=== PATIENT | female | born 1945 | race Caucasian/White ===

== ENCOUNTER → 2016-08-22 | Outpatient (CLI) | payer MEDICARE ==
[2016-08-22 12:15] LABS: Basophils % (A) 1 %; CH 29.9; CHCM 33.1; Eosinophils # (A) 0.2 k/uL (0-0.7); Eosinophils % (A) 3 %; HCT 41.2 % (34.0-46.0); HDW 2.57; HGB 13.4 gm/dL (11.4-16.0); Luc # (Auto) 0.14; Luc % (Auto) 2; Lymphocytes # (A) 2.4 k/uL (1.0-4.8); Lymphocytes % (A) 33 %; MCH 29.6 pg (25.0-35.0); MCHC 32.7 g/dL (31.0-37.0); MCV 90.6 fL (80.0-100.0); Mean Platelet Volume 7.1; Monocytes # (A) 0.4 k/uL (0-1.0); Monocytes % (A) 5 %; Neutrophils # (A) 4.3 k/uL (1.3-7.7); Neutrophils % (A) 57 %; RBC 4.54 m/uL (3.80-5.40); RDW 12.8 % (11.5-15.5); WBC 7.5 k/uL (3.8-10.6)
[2016-08-22 12:47] LABS: ALT 32 U/L (9-52); AST 25 U/L (14-36); Alkaline Phosphatase 133 U/L (38-126); Anion Gap 13 mmol/L; Blood Urea Nitrogen 17 mg/dL (7-17); Calcium 9.6 mg/dL (8.4-10.2); Carbon Dioxide 24 mmol/L (22-30); Chloride 107 mmol/L (98-107); Glucose 111 mg/dL (74-99); Non-African American GFR(MDRD) >60 (>60 ml/min/1.73 sqM); Potassium 4.6 mmol/L (3.5-5.1); Sodium 144 mmol/L (137-145); Total Bilirubin 0.8 mg/dL (0.2-1.3); Total Protein 7.5 g/dL (6.3-8.2)
--- NOTE | 2016-08-27 11:02 | MM ---
Reason for exam: screening (asymptomatic). Last mammogram was performed 2 years and 2 months ago. History: Patient is postmenopausal. Benign stereotactic core biopsy of the right breast, September 16, 2003. Benign stereotactic core biopsy of the right breast, May 16, 2000. Excisional biopsy of the left breast. Took estrogen for 6 months. Physical Findings: A clinical breast exam by your physician is recommended on an annual basis and results should be correlated with mammographic findings. MG 3D Screening Mammo W/Cad Bilateral CC and MLO view(s) were taken. Prior study comparison: June 10, 2014, bilateral MG screening mammo w CAD. April 07, 2013, bilateral digital screening mammo w/CAD. The breast tissue is heterogeneously dense. This may lower the sensitivity of mammography. Finding: There are typically benign punctate calcifications. There is a chronic nodularity in the right breast. ASSESSMENT: Benign, BI-RAD 2 RECOMMENDATION: Routine screening mammogram of both breasts in 1 year.
== END | disposition home or self-care (01) ==
LOC: RADMAMWWP 08:02
PROVIDERS: ATTEND Family Medicine
DX: Z12.31 Encounter for screening mammogram for malignant neoplasm of breast (principal); I63.9 Cerebral infarction, unspecified; E78.5 Hyperlipidemia, unspecified
CPT/HCPCS: 80053; 85025; 77063; 36415; G0202

== ENCOUNTER → 2016-10-01 | Outpatient (CLI) | payer MEDICARE ==
--- NOTE | 2016-10-01 12:42 | MR ---
EXAMINATION TYPE: MR brain wo con DATE OF EXAM: 10/01/2016 7:23 AM COMPARISON: MRI brain 04/25/2016, CT brain 04/24/2016 HISTORY: Headaches CONTRAST: Performed utilizing 0 mL intravenous MultiHance gadolinium contrast. TECHNIQUE: Multiplanar, multiecho imaging on a 3.0 Eva magnet is performed through the brain. Stud y is performed within 24 hours of arrival to the hospital. The craniovertebral junction is normal. The pituitary is normal. Diffusion-weighted imaging is performed. No abnormal hyperintensity is present to suggest an acute i ntracranial infarct or acute ischemic change. There is an old infarct through the posterior left midd le jugular artery distribution from the trilobar region towards the left temporal lobe. There is vianey-infarct white matter changes on inversion recovery weighted sequences compatible some g liosis. No acute edema or diffusion abnormality is evident to suggest this is new. Ventricles and sulci are appropriate for the patient age. There is mild prominence of sulci and extra-axial space adjacent to the prior infarct. There is mild paranasal sinus mucosal thickening within ethmoid air cells. IMPRESSIONS: 1. 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 No acute interv al changes evident.
== END | disposition home or self-care (01) ==
LOC: RADMRIMAIN 06:39
PROVIDERS: ATTEND Psychiatry & Neurology Pain Medicine
DX: R51 Headache (principal); Z86.73 Personal history of transient ischemic attack (TIA), and cerebral infarction without residual deficits
CPT/HCPCS: 70551

== ENCOUNTER → 2017-11-22 | Outpatient (CLI) | payer MEDICARE ==
[2017-11-22 11:56] LABS: Blood Urea Nitrogen 18 mg/dL (7-17)
--- NOTE | 2017-11-23 21:06 | MR ---
EXAMINATION TYPE: MR angio head wo MR angio neck wo/w con DATE OF EXAM: 11/22/2017 COMPARISON: Correlation carotid ultrasound 04/25/2016 and MRI brain 10/01/2016 HISTORY: 72-year-old female Left side facial numbness, neck pain, CVA TECHNIQUE: High-resolution 3-D [id number] imaging of the cervical of [place] was performed. Rotat ional 3-D reconstructions were generated on a dedicated independent workstation. Additional 2-D and 3-D [id number] imaging of the carotid vessels followed by pre and postcontrast volume sequences before and after administration of 7.5 mL gadavist. Reconstructions generated on a dedicated independent workstation. FINDINGS: HEAD: There is focal motion artifact at the distal basilar artery limiting its assessment. There is a 3.5 mm saccular aneurysm at the right MCA bifurcation. Otherwise, the anterior and posteri or circulations are patent without significant stenosis or arterial occlusion, or other aneurysmal ch pina seen. An old left MCA territory infarct with encephalomalacia is noted on the axial sequence. NECK: The reconstructed postcontrast images, no abnormal narrowing is seen at the level of the upper basila r artery. There is conventional vessel branching anatomy. Codominant vertebral arteries which remain patent thr oughout her course. No significant stenosis appreciated within either common or internal carotid artery. The vessels appe ar patent. IMPRESSION: 1. Head: There is a 3.5 mm saccular aneurysm at the right MCA bifurcation. No significant stenosis, a rterial occlusion, or other aneurysmal change seen. 2. Neck: No hemodynamically significant stenosis appreciated in either common or internal carotid art tonio.
== END | disposition home or self-care (01) ==
LOC: RADMRIMAIN 11:14
PROVIDERS: ATTEND Psychiatry & Neurology Pain Medicine
DX: I67.1 Cerebral aneurysm, nonruptured (principal)
CPT/HCPCS: 82565; 84520; 70544; 70549; 36415; A9581

== ENCOUNTER → 2017-12-11 | Outpatient (CLI) | payer MEDICARE ==
[2017-12-11 08:43] LABS: Basophils % (A) 1 %; Eosinophils # (A) 0.2 k/uL (0-0.7); Eosinophils % (A) 3 %; HCT 38.5 % (34.0-46.0); HGB 12.8 gm/dL (11.4-16.0); Lymphocytes # (A) 1.9 k/uL (1.0-4.8); Lymphocytes % (A) 36 %; MCH 29.2 pg (25.0-35.0); MCHC 33.2 g/dL (31.0-37.0); Mean Platelet Volume 7.3; Monocytes # (A) 0.3 k/uL (0-1.0); Monocytes % (A) 7 %; Neutrophils # (A) 2.7 k/uL (1.3-7.7); Neutrophils % (A) 52 %; Platelet Count 187 k/uL (150-450); RBC 4.37 m/uL (3.80-5.40); WBC 5.1 k/uL (3.8-10.6)
[2017-12-11 09:13] LABS: Albumin 4.1 g/dL (3.5-5.0); Calcium 9.4 mg/dL (8.4-10.2); Magnesium 1.9 mg/dL (1.6-2.3); Phosphorus 3.9 mg/dL (2.5-4.5); Potassium 4.6 mmol/L (3.5-5.1); Total Bilirubin 0.6 mg/dL (0.2-1.3); Total Protein 6.6 g/dL (6.3-8.2); Uric Acid 5.7 mg/dL (3.7-7.4)
[2017-12-11 12:00] LABS: Appearance,Urine Clear (Clear); Bacteria,Urine Rare /hpf; Bilirubin,Urine Negative (Negative); Blood,Urine Negative (Negative); Color,Urine Yellow; Glucose,Urine (UA) Negative (Negative); Ketones,Urine Negative (Negative); Leukocyte Esterase,Urine Small (Negative); Mucus,Urine Rare /hpf; Nitrite,Urine Negative (Negative); PH, Urine 5.5 (5.0-8.0); Protein,Urine Negative (Negative); RBC,Urine 1 /hpf (0-5); Specific Gravity,Urine 1.011 (1.001-1.035); Squamous Epithelial Cell,Urine 1 /hpf (0-4); Urobilinogen,Urine <2.0 mg/dL (<2.0); WBC,Urine 2 /hpf (0-5)
[2017-12-11 16:26] LABS: Iron Saturation 29.25 (12.00-45.00); Protein, Total 6.7 g/dL (6.2-8.2)
[2017-12-11 16:33] LABS: Vitamin D 25 Hydroxy 32.1 ng/mL (30.0-100.0)
[2017-12-11 16:41] LABS: Parathyroid Hormone Intact 43.6 pg/mL (14.0-72.0)
[2017-12-12 10:23] LABS: Albumin 3.91 g/dL (3.80-4.90); Gamma Globulin 0.85 g/dL (0.70-1.50)
== END | disposition home or self-care (01) ==
LOC: LABWHC1 08:01
PROVIDERS: ATTEND Internal Medicine Nephrology
DX: N17.9 Acute kidney failure, unspecified (principal); E55.9 Vitamin D deficiency, unspecified; D64.9 Anemia, unspecified; M10.9 Gout, unspecified; I10 Essential (primary) hypertension
CPT/HCPCS: 36415; 80053; 81001; 82306; 82728; 83540; 83550; 83735; 83970; 84100; 84165; 84550; 85025; 86335

== ENCOUNTER 2018-05-31 12:38 | Observation (INO) | payer MEDICARE ==
[2018-05-31] MEDS ORDERED: SODIUM CHLORIDE 0.9% 1,000 ML IV STA ×2 (13:12→16:22)
[2018-05-31] MEDS ORDERED: METOCLOPRAMIDE 5 MG/ML 2 ML VIAL IVP STA (13:15)
--- NOTE | 2018-05-31 13:19 | ED ---
General Adult HPI - General Chief complaint: Dizziness Stated complaint: Dizziness Time Seen by Provider: 05/31/18 13:03 Source: patient, family Mode of arrival: wheelchair Limitations: no limitations - History of Present Illness Initial comments: Patient is a pleasant 72-year-old female presenting to the emergency department with dizziness. Patient has had mild sore throat past couple of days. Patient noticed today when she stood up she feels lightheaded. Patient states symptoms resolved with lying down. Patient states when she feels lightheaded she has some associated nausea. Patient did have some tingling earlier. No confusion. No change in speech pattern. No isolated area of weakness. Patient is currently symptom-free while lying in bed. - Related Data Home Medications Medication Instructions Recorded Confirmed Cholecalciferol [Vitamin D3] 1,000 unit PO DAILY 05/31/18 05/31/18 Lisinopril [Prinivil] 5 mg PO DAILY 05/31/18 05/31/18 Multivitamins, Thera [Multivitamin 1 tab PO DAILY 05/31/18 05/31/18 (formulary)] Sertraline HCl [Zoloft] 25 mg PO DAILY 05/31/18 05/31/18 Previous Rx's Medication Instructions Recorded Aspirin 81 mg PO BID chew 04/27/16 Atorvastatin [Lipitor] 40 mg PO HS #30 tab 04/27/16 Allergies Allergy/AdvReac Type Severity Reaction Status Date / Time codeine AdvReac HEADACHE Verified 05/31/18 13:28 Review of Systems ROS Statement: Those systems with pertinent positive or pertinent negative responses have been documented in the HPI. ROS Other: All systems not noted in ROS Statement are negative. Constitutional: Denies: fever Eyes: Denies: eye pain ENT: Denies: ear pain Respiratory: Denies: cough Cardiovascular: Denies: chest pain Endocrine: Denies: fatigue Gastrointestinal: Denies: abdominal pain Genitourinary: Denies: dysuria Musculoskeletal: Denies: back pain Skin: Denies: rash Neurological: Denies: headache, weakness, confusion Past Medical History Past Medical History: CVA/TIA, Hyperlipidemia, Hypertension Additional Past Medical History / Comment(s): See Dr Way's H&P. CVA with residual speech issues, dizziness History of Any Multi-Drug Resistant Organisms: None Reported Past Surgical History: Cholecystectomy, Hysterectomy, Tonsillectomy Additional Past Surgical History / Comment(s): CYST REMOVED LEFT HAND, DENNY.CATARACTS Past Anesthesia/Blood Transfusion Reactions: No Reported Reaction Past Psychological History: Depression Smoking Status: Former smoker Past Alcohol Use History: Occasional Past Drug Use History: None Reported - Past Family History Father Family Medical History: Cancer Additional Family Medical History / Comment(s): LUNG Mother Family Medical History: Cancer Additional Family Medical History / Comment(s): COLON General Exam Limitations: no limitations General appearance: alert, in no apparent distress Head exam: Present: atraumatic, normocephalic Eye exam: Present: normal appearance, PERRL, EOMI. Absent: nystagmus ENT exam: Present: normal oropharynx Neck exam: Present: normal inspection Respiratory exam: Present: normal lung sounds bilaterally Cardiovascular Exam: Present: regular rate, normal rhythm Expanded Peripheral pulses: 2+: Radial (R), Radial (L), Dorsalis Pedis (R), Dorsalis Pedis (L) GI/Abdominal exam: Present: soft. Absent: distended, tenderness Extremities exam: Present: normal inspection. Absent: pedal edema, calf tenderness Neurological exam: Present: alert, oriented X3, CN II-XII intact. Absent: motor sensory deficit Expanded Neurological exam: Present: protecting the airway Patient oriented to: Present: person, place, time Speech: Present: fluid speech Cranial nerves: EOM's Intact: Normal, Facial Sensation: Normal Sensory exam: Upper Extremity Light Touch: Normal, Lower Extremity Light Touch: Normal Motor strength exam: RUE: 5, LUE: 5, RLE: 5, LLE: 5 Eye Response: (4) open spontaneously Motor Response: (6) obeys commands Verbal Response: (5) oriented Psychiatric exam: Present: normal affect, normal mood Skin exam: Present: normal color Course Vital Signs 05/31/18 05/31/18 05/31/18 12:46 15:40 15:41 Temperature 97.5 F L Pulse Rate 93 Pulse Rate [ 94 98 Mmi Teacher ] Respiratory 18 Rate Blood Pressure 89/48 Blood Pressure 90/56 88/55 [Right Arm] O2 Sat by Pulse 96 Oximetry EKG Findings - EKG Comments: EKG Findings:: Normal sinus rhythm 88. LA 152. QRS 76. QT 390. QTC 471. Normal axis. Normal QRS. Nonspecific ST-T. EKG reviewed from 03/20/2017 with similar findings. Medical Decision Making - Medical Decision Making Patient reevaluated. Patient blood pressure 88. Patient will be admitted for further IV fluid hydration. Case was discussed in detail with Dr. chaney, who will admit covering for Dr. Brooks. - Lab Data Result diagrams: 05/31/18 13:17 05/31/18 13:17 Lab Results 05/31/18 05/31/18 05/31/18 Range/Units 13:17 13:17 13:17 WBC 11.8 H (3.8-10.6) k/uL RBC 4.06 (3.80-5.40) m/uL Hgb 12.1 (11.4-16.0) gm/dL Hct 36.1 (34.0-46.0) % MCV 89.0 (80.0-100.0) fL MCH 29.8 (25.0-35.0) pg MCHC 33.5 (31.0-37.0) g/dL RDW 12.9 (11.5-15.5) % Plt Count 226 (150-450) k/uL Neutrophils % 88 % Lymphocytes % 8 % Monocytes % 2 % Eosinophils % 1 % Basophils % 0 % Neutrophils # 10.4 H (1.3-7.7) k/uL Lymphocytes # 0.9 L (1.0-4.8) k/uL Monocytes # 0.3 (0-1.0) k/uL Eosinophils # 0.2 (0-0.7) k/uL Basophils # 0.0 (0-0.2) k/uL PT (9.0-12.0) sec INR (<1.2) APTT (22.0-30.0) sec Sodium 139 (137-145) mmol/L Potassium 4.8 (3.5-5.1) mmol/L Chloride 108 H (98-107) mmol/L Carbon Dioxide 19 L (22-30) mmol/L Anion Gap 12 mmol/L BUN 44 H (7-17) mg/dL Creatinine 0.84 (0.52-1.04) mg/dL Est GFR (CKD-EPI)AfAm 80 (>60 ml/min/1.73 sqM) Est GFR (CKD-EPI)NonAf 70 (>60 ml/min/1.73 sqM) Glucose 177 H (74-99) mg/dL Calcium 9.2 (8.4-10.2) mg/dL Total Bilirubin 1.0 (0.2-1.3) mg/dL AST 28 (14-36) U/L ALT 28 (9-52) U/L Alkaline Phosphatase 102 (38-126) U/L Total Creatine Kinase 46 (30-135) U/L CK-MB (CK-2) 0.4 (0.0-2.4) ng/mL CK-MB (CK-2) Rel Index 0.9 Troponin I <0.012 (0.000-0.034) ng/mL Total Protein 6.8 (6.3-8.2) g/dL Albumin 4.0 (3.5-5.0) g/dL Group A Strep Rapid (Negative) 05/31/18 05/31/18 Range/Units 13:17 15:00 WBC (3.8-10.6) k/uL RBC (3.80-5.40) m/uL Hgb (11.4-16.0) gm/dL Hct (34.0-46.0) % MCV (80.0-100.0) fL MCH (25.0-35.0) pg MCHC (31.0-37.0) g/dL RDW (11.5-15.5) % Plt Count (150-450) k/uL Neutrophils % % Lymphocytes % % Monocytes % % Eosinophils % % Basophils % % Neutrophils # (1.3-7.7) k/uL Lymphocytes # (1.0-4.8) k/uL Monocytes # (0-1.0) k/uL Eosinophils # (0-0.7) k/uL Basophils # (0-0.2) k/uL PT 10.5 (9.0-12.0) sec INR 1.0 (<1.2) APTT 22.2 (22.0-30.0) sec Sodium (137-145) mmol/L Potassium (3.5-5.1) mmol/L Chloride (98-107) mmol/L Carbon Dioxide (22-30) mmol/L Anion Gap mmol/L BUN (7-17) mg/dL Creatinine (0.52-1.04) mg/dL Est GFR (CKD-EPI)AfAm (>60 ml/min/1.73 sqM) Est GFR (CKD-EPI)NonAf (>60 ml/min/1.73 sqM) Glucose (74-99) mg/dL Calcium (8.4-10.2) mg/dL Total Bilirubin (0.2-1.3) mg/dL AST (14-36) U/L ALT (9-52) U/L Alkaline Phosphatase (38-126) U/L Total Creatine Kinase (30-135) U/L CK-MB (CK-2) (0.0-2.4) ng/mL CK-MB (CK-2) Rel Index Troponin I (0.000-0.034) ng/mL Total Protein (6.3-8.2) g/dL Albumin (3.5-5.0) g/dL Group A Strep Rapid Negative (Negative) - Radiology Data Radiology results: report reviewed (Computed tomography scan of the brain shows new area of encephalomalacia since previous CT however no acute findings.), image reviewed (Chest x-ray shows no acute process) Disposition Clinical Impression: Dehydration Disposition: ADMITTED IP TO THIS HOSP Is patient prescribed a controlled substance at d/c from ED?: No Referrals: Ruben Brooks MD [Primary Care Provider] - 1-2 days Decision Time: 16:31
[2018-05-31 13:30] LABS: Basophils % (A) 0 %; Eosinophils # (A) 0.2 k/uL (0-0.7); Eosinophils % (A) 1 %; HCT 36.1 % (34.0-46.0); HGB 12.1 gm/dL (11.4-16.0); Lymphocytes # (A) 0.9 k/uL (1.0-4.8); Lymphocytes % (A) 8 %; MCH 29.8 pg (25.0-35.0); MCHC 33.5 g/dL (31.0-37.0); Mean Platelet Volume 7.3; Monocytes # (A) 0.3 k/uL (0-1.0); Monocytes % (A) 2 %; Neutrophils # (A) 10.4 k/uL (1.3-7.7); Neutrophils % (A) 88 %; Platelet Count 226 k/uL (150-450); RBC 4.06 m/uL (3.80-5.40); RDW 12.9 % (11.5-15.5); WBC 11.8 k/uL (3.8-10.6)
[2018-05-31 13:41] LABS: Calcium 9.2 mg/dL (8.4-10.2); Partial Thromboplastin Time 22.2 sec (22.0-30.0); Potassium 4.8 mmol/L (3.5-5.1); Prothrombin Time 10.5 sec (9.0-12.0); Total Protein 6.8 g/dL (6.3-8.2)
[2018-05-31 13:51] LABS: Creatine Kinase 46 U/L (30-135)
[2018-05-31 14:04] LABS: Creatine Kinase MB 0.4 ng/mL (0.0-2.4); Troponin I <0.012 ng/mL (0.000-0.034)
--- NOTE | 2018-05-31 15:10 | CT ---
EXAMINATION TYPE: CT brain wo con DATE OF EXAM: 05/31/2018 COMPARISON: 04/24/2016 HISTORY: 72-year-old female neurologic deficits, confusion Neuro deficits. TECHNIQUE: Examination was done in axial plane without intravenous contrast. Coronal and sagittal r econstructions performed. CT DLP: 1040.4 mGycm Automated exposure control for dose reduction was used. FINDINGS: There is no evidence of acute intracranial hemorrhage, acute ischemic changes, mass, mass-effect, or extra-axial fluid collection. There is no effacement of cerebral sulci or basal subarachnoid cister ns. There is no hydrocephalus. There is no midline shift. Sullivan-white matter distinction is preserv ed. New moderate to severe mucosal thickening throughout the left ethmoid air cells. As compared to 04/24/2016, there is a new area of encephalomalacia lateral left frontal lobe suggesti ng interval infarct. Mastoid air cells are well pneumatized. Orbits and globes appear intact. IMPRESSION: 1. Large area of encephalomalacia lateral frontal lobe, new from 04/24/[address] 2. No acute intracranial neurology seen. 3. 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
--- NOTE | 2018-05-31 15:53 | XR ---
EXAMINATION TYPE: XR chest 2V DATE OF EXAM: 05/31/2018 COMPARISON: 04/24/2016 HISTORY: 72-year-old female confusion, altered mental status TECHNIQUE: PA and lateral views FINDINGS: Heart normal size. Aortopulmonary vasculature within normal limits. Mild interstitial prominence is u nchanged. No consolidation or pleural effusion. IMPRESSION: Chronic changes without acute cardiopulmonary process.
[2018-05-31] MEDS ORDERED: NALOXONE 0.4 MG/ML 1 ML VIAL IV PRN (16:32)
[2018-05-31 18:24] VITALS: BMI 30.2
[2018-05-31] MEDS: SODIUM CHLORIDE 0.9% 1,000 ML IV SCH (18:27)
[2018-05-31 21:55] LABS: Appearance,Urine Clear (Clear); Bacteria,Urine Rare /hpf; Bilirubin,Urine Negative (Negative); Blood,Urine Small (Negative); Color,Urine Light Yellow; Glucose,Urine (UA) Negative (Negative); Ketones,Urine Negative (Negative); Leukocyte Esterase,Urine Trace (Negative); Nitrite,Urine Negative (Negative); PH, Urine 5.5 (5.0-8.0); Protein,Urine Negative (Negative); Specific Gravity,Urine 1.009 (1.001-1.035); Squamous Epithelial Cell,Urine <1 /hpf (0-4); Urobilinogen,Urine <2.0 mg/dL (<2.0); WBC,Urine 2 /hpf (0-5)
[2018-05-31] MEDS ORDERED: TEMAZEPAM 15 MG CAP PO PRN (22:49)
[2018-05-31] MEDS ORDERED: ALPRAZolam 0.25 MG TAB PO PRN (22:49)
[2018-06-01] MEDS: SODIUM CHLORIDE 0.9% 1,000 ML IV SCH ×3 (03:40→18:49)
[2018-06-01] MEDS ORDERED: LISINOPRIL 5 MG TAB PO SCH (09:00)
[2018-06-01] MEDS: SERTRALINE 25 MG TAB PO SCH (09:27)
[2018-06-01] MEDS: PANTOPRAZOLE 40 MG TABLET PO SCH ×2 (09:27→09:30)
[2018-06-01] MEDS: CHOLECALCIFEROL 1,000 UNIT TAB PO SCH (09:27)
[2018-06-01] MEDS: HEPARIN SODIUM,PORCINE 5,000 UNIT/ML 1 ML VIAL SQ SCH ×2 (09:28→21:17)
[2018-06-01] MEDS: ASPIRIN 81 MG PO SCH ×2 (09:28→21:17)
--- NOTE | 2018-06-01 09:43 | HP ---
HISTORY AND PHYSICAL DATE OF SERVICE: 05/31/2018 CHIEF COMPLAINT: Dizziness and dehydration. HISTORY OF PRESENT ILLNESS: This 72-year-old woman with a past medical history of multiple medical problems including history of CVA, hypertension, hyperlipidemia, history of cholecystectomy, being followed by Dr. Brooks in the outpatient setting, has not been feeling well for the past 1 week. The patient has a sore throat and some difficulty in swallowing also. Patient was feeling weak and dizzy. The patient came to [facility] and was admitted for evaluation and treatment. The patient also had contact with a child with RSV recently. There is no history of chest pain, palpitation, headache, loss of consciousness or seizures. PAST MEDICAL HISTORY: 1. CVA. 2. Hypertension. 3. Hyperlipidemia. 4. Cholecystectomy. MEDICATIONS: Prior to admission include: 1. Zoloft 25 mg. 2. Multivitamins 1 daily. 4. Vitamin D 3000 daily. 5. Lipitor 40 mg daily. 6. Aspirin 81 mg p.o. b.i.d. ALLERGIES: CODEINE. FAMILY HISTORY: History of lung cancer in the family. SOCIAL HISTORY: Previous smoking history, current not smoking. No alcohol intake. REVIEW OF SYSTEMS: ENT: No diminished vision or hearing. CARDIOVASCULAR: No angina or palpitations. GI: No nausea. : No dysuria or hematuria. NERVOUS SYSTEM: No numbness or weakness. ALLERGY/IMMUNOLOGY: None. MUSCULOSKELETAL: As mentioned. HEMATOLOGY: No history of anemia. ENDOCRINE: No history of diabetes or hypothyroidism. CONSTITUTIONAL: As mentioned. DERMATOLOGY: Negative. PSYCHIATRY: As mentioned. PHYSICAL EXAMINATION: Alert, oriented x3, pulse 84, blood pressure 114/70, respirations 16, temperature 98.4, pulse ox 97% on room air. HEENT: Conjunctivae normal. Oral mucosa moist. NECK: No jugular venous distention. No lymph node enlargement. CARDIOVASCULAR: S1, S2 muffled. RESPIRATORY: Breath sounds diminished in the bases. A few scattered rhonchi. No crackles. ABDOMEN: Soft, nontender. LEGS: No edema. NERVOUS SYSTEM: Higher functions as mentioned. Moves all limbs. No focal deficits. LYMPHATICS: No rash. LABS: WBC 11.2, hemoglobin 12.1, sodium 138, potassium 4.8, glucose 177. UA noted. ASSESSMENT: 1. Upper respiratory infection with severe dehydration with hypotension, for evaluation. 2. History of cerebrovascular accident, transient ischemic attack. 3. Hypertension. 4. Hyperlipidemia. 5. History of cholecystectomy. 6. Degenerative joint disease. 7. Depression. 8. Remote history of nicotine dependence. RECOMMENDATIONS AND DISCUSSION: This 72-year-old woman presented with multiple complex medical issues. We will monitor the patient closely. Continue the current management and symptomatic treatment. We will initiate home medications. We will hold the lisinopril. Otherwise repeat labs. I would also recommend IV fluids, influenza swab, also strep throat also was being tested. The prognosis is guarded because of multiple consultative prognosis. See orders for details. Repeat labs will be ordered. MMODL / IJN: [id number] / SJUEY
[2018-06-01] MEDS: ACETAMINOPHEN TAB 500 MG TAB PO PRN (12:29)
[2018-06-01] MEDS: MULTIVITAMINS, THERA 1 EACH TAB PO SCH (12:29)
[2018-06-01 13:19] LABS: Basophils % (A) 0 %; Eosinophils # (A) 0.2 k/uL (0-0.7); Eosinophils % (A) 2 %; HCT 28.6 % (34.0-46.0); Lymphocytes % (A) 27 %; MCH 29.6 pg (25.0-35.0); MCHC 32.8 g/dL (31.0-37.0); Mean Platelet Volume 7.3; Monocytes # (A) 0.4 k/uL (0-1.0); Monocytes % (A) 5 %; Neutrophils # (A) 4.6 k/uL (1.3-7.7); Neutrophils % (A) 63 %; Platelet Count 187 k/uL (150-450); RBC 3.18 m/uL (3.80-5.40); RDW 13.3 % (11.5-15.5); WBC 7.3 k/uL (3.8-10.6)
[2018-06-01 13:23] LABS: HGB 9.4 gm/dL (11.4-16.0)
[2018-06-01 13:32] LABS: Anion Gap 5 mmol/L; Blood Urea Nitrogen 30 mg/dL (7-17); Calcium 8.7 mg/dL (8.4-10.2); Carbon Dioxide 23 mmol/L (22-30); Chloride 114 mmol/L (98-107); Glucose 92 mg/dL (74-99); Potassium 4.8 mmol/L (3.5-5.1); Sodium 142 mmol/L (137-145)
[2018-06-01] MEDS ORDERED: ATORVASTATIN 40 MG TAB PO SCH (21:00)
--- NOTE | 2018-06-02 00:04 | PN ---
PROGRESS NOTE DATE OF SERVICE: 06/01/2018. HISTORY: This 72-year-old woman is admitted dehydration and dizziness. She is being closely monitored. No chest pain. No palpitations. No fever. Patient had hypotension and upper respiratory tract infection. Patient is improving significantly. No chest pain, no palpitation. EXAM: Alert and oriented x3. Pulse 81, blood pressure 106/50, respiration 16, temperature 97.4, pulse ox 98% on room air. HEENT: Conjunctivae normal. NECK: No JVD. CARDIOVASCULAR: S1 and S2 muffled. LUNGS: Breath sounds diminished at the bases. No rhonchi, no crackles. ABDOMEN: Soft, nontender. EXTREMITIES: Legs no edema. NERVOUS SYSTEM: No focal deficits. LAB STUDIES: WBC ntd , hemoglobin is 9.4. BUN is improved to 30, creatinine 0.65. ASSESSMENT: 1. Acute upper respiratory infection with severe dehydration and hypotension. 2. History of CVA and TIA. 3. Hypertension. 4. Hyperlipidemia. 5. History of cholecystectomy. 6. History of degenerative joint disease. 7. History of depression. 8. Remote history of nicotine dependence. RECOMMENDATIONS: I recommend to continue current management and symptomatic treatment. Otherwise , closely follow. Continue with IV fluids. Guarded prognosis because of multiple complex medical issues. Further recommendations to follow. MMODL / IJN: [id number] / SUJEY
[2018-06-02] MEDS: SODIUM CHLORIDE 0.9% 1,000 ML IV SCH ×2 (01:37→11:00)
[2018-06-02] MEDS: ASPIRIN 81 MG PO SCH (08:22)
[2018-06-02] MEDS: HEPARIN SODIUM,PORCINE 5,000 UNIT/ML 1 ML VIAL SQ SCH (08:23)
[2018-06-02] MEDS: CHOLECALCIFEROL 1,000 UNIT TAB PO SCH (08:27)
[2018-06-02] MEDS: SERTRALINE 25 MG TAB PO SCH (08:31)
[2018-06-02] MEDS: PANTOPRAZOLE 40 MG TABLET PO SCH (08:31)
[2018-06-02 10:15] LABS: Basophils % (A) 0 %; Eosinophils # (A) 0.2 k/uL (0-0.7); Eosinophils % (A) 3 %; HCT 27.9 % (34.0-46.0); HGB 9.3 gm/dL (11.4-16.0); Lymphocytes # (A) 1.8 k/uL (1.0-4.8); Lymphocytes % (A) 30 %; MCH 29.8 pg (25.0-35.0); MCHC 33.3 g/dL (31.0-37.0); MCV 89.7 fL (80.0-100.0); Mean Platelet Volume 6.9; Monocytes # (A) 0.2 k/uL (0-1.0); Monocytes % (A) 4 %; Neutrophils # (A) 3.7 k/uL (1.3-7.7); Neutrophils % (A) 61 %; Platelet Count 190 k/uL (150-450); RBC 3.11 m/uL (3.80-5.40); RDW 12.9 % (11.5-15.5)
[2018-06-02 10:20] LABS: Anion Gap 7 mmol/L; Blood Urea Nitrogen 15 mg/dL (7-17); Calcium 8.5 mg/dL (8.4-10.2); Carbon Dioxide 23 mmol/L (22-30); Chloride 113 mmol/L (98-107); Glucose 107 mg/dL (74-99); Potassium 4.5 mmol/L (3.5-5.1); Sodium 143 mmol/L (137-145)
[2018-06-02] MEDS ORDERED: IV FLUID CONTINUATION 1,000 ML IV ONE (11:15)
[2018-06-02] MEDS ORDERED: PROPOFOL 10 MG/ML 20 ML VIAL IV ONE (11:15)
[2018-06-02] MEDS ORDERED: SODIUM CHLORIDE 0.9% 500 ML 500 ML IV ONE (11:29)
--- NOTE | 2018-06-02 11:44 | P.PCN ---
Date of Procedure: 06/02/18 Description of Procedure: BRIEF HISTORY: The patient is a 72-year-old woman with a medical history significant for prior CVA, hypertension, dyslipidemia and prior cholecystectomy who presented to the hospital with complaints of feeling unwell. Per the patient she had noted 1 week of not feeling well. She reported esophageal dysphagia and had associated nausea and vomiting. The patient was also found to have follow from presentation. Upper endoscopy was ordered for further evaluation. PROCEDURE PERFORMED: Esophagogastroduodenoscopy. PREOPERATIVE DIAGNOSIS: Anemia, esophageal dysphagia, nausea and vomiting. ESTIMATED BLOOD LOSS: Minimal. IV sedation per anesthesia. PROCEDURE: After informed consent was obtained, the patient was brought into the endoscopy unit. IV sedation was administered by Anesthesia under continuous monitoring. Initially the Olympus GIF-190 video endoscope was inserted into the mouth. Esophagus intubated without any difficulty. It was gradually advanced into the stomach and duodenum and carefully examined. The duodenal bulb was significant for moderate duodenitis which erythema and superficial erosions noted, biopsied. The second portion of the duodenum appeared normal. The scope at this time was withdrawn to the stomach, adequately insufflated with air, and upon careful examination, mucosa of the antrum, body, cardia and the fundus appeared grossly normal. However, in gastric antrum scattered erythema suggestive of gastritis was noted as well as multiple nonbleeding superficial ulcerations without any high risk stigmata for rebleeding were noted and biopsied. The scope was then withdrawn into the esophagus. Medium-sized hiatal hernia was noted. The GE junction was located at 36 cm from the incisors. The esophagus appeared normal. There were no erosions or ulcerations seen, with mid esophageal biopsies taking given history of esophageal dysphagia. The patient tolerated the procedure well. IMPRESSION: 1. Gastric antral ulcers, biopsied. 2. Gastritis. 3. Moderate duodenitis, biopsied. 4. Hiatal hernia. 5. Mid esophageal biopsies. RECOMMENDATIONS: The findings of this examination were discussed with the patient and her daughter. Okay to restart diet. Will increase Protonix to 40 mg twice daily. Await pathology from biopsies. Patient will need follow-up with gastroenterology in 1-2 weeks and repeat EGD in 6-8 weeks to check for ulcer healing. Avoid NSAID medications. Continue to monitor hemoglobin and transfuse as needed.
[2018-06-02] MEDS: MULTIVITAMINS, THERA 1 EACH TAB PO SCH (11:50)
[2018-06-02 14:10] VITALS: PULSE 74; RESP 16
[2018-06-02] MEDS: ACETAMINOPHEN TAB 500 MG TAB PO PRN (16:57)
[2018-06-02] MEDS ORDERED: PANTOPRAZOLE 40 MG TABLET PO SCH (17:30)
[2018-06-02 17:46] VITALS: BP 156/80; TEMP 97.9
--- NOTE | 2018-06-03 04:38 | DS ---
DISCHARGE SUMMARY DATE OF ADMISSION: 05/31/2018. DATE OF DISCHARGE: 06/02/2018. FINAL DIAGNOSES: 1. Acute upper gastrointestinal bleed from peptic ulcer disease. 2. Gastric antral ulcers. 3. Gastritis. 4. Moderate duodenitis. HOSPITAL COURSE: This patient presented with dizzy lightheadedness, had noticed dark stools for the last 2 days. Hemoglobin was 9.3. Did undergo EGD that showed gastritis, duodenitis and gastric ulcer. PPI was added. The patient has had peptic ulcer in the remote past. Did tolerate a diet this evening. Has been up and about in the hallway. No further dizziness, lightheadedness. Did discuss at length with the patient and daughter, very keen to go home. Hence, will let the patient be discharged. PHYSICAL EXAMINATION: Temperature 97.9, blood pressure 156/80, pulse 74. ABDOMEN: Soft, nontender. Lungs fair entry. DISCHARGE MEDICATIONS: 1. Aspirin 81 mg b.i.d. 2. Lipitor 40 mg q.h.s. 3. Vitamin D3 1000 units p.o. daily. 4. Prinivil 5 mg a day. 5. Multivitamin 1 tablet p.o. daily. 6. Zoloft 25 mg p.o. daily. 7. Omeprazole 20 mg b.i.d. FOLLOWUP: Follow up with Dr. Gurrola in 2 weeks. Follow up with Dr. Brooks in 3 days. Diet: Soft bland. CONSULTATIONS: Dr. Stanley Gurrola from Gastroenterology. Copy to Dr. Brooks. MMODL / IJN: [id number] /
== END 2018-06-02 19:27 | disposition home or self-care (01) ==
LOC: EC 12:38 → 4MS4W 16:32 → 6PED 06-02 13:59
PROVIDERS: ADMIT Hospitalist; ATTEND Hospitalist
DX: K27.4 Chronic or unspecified peptic ulcer, site unspecified, with hemorrhage (principal); K29.70 Gastritis, unspecified, without bleeding; K29.80 Duodenitis without bleeding; E86.0 Dehydration; I10 Essential (primary) hypertension; E78.5 Hyperlipidemia, unspecified; J06.9 Acute upper respiratory infection, unspecified; I95.9 Hypotension, unspecified; M19.90 Unspecified osteoarthritis, unspecified site; F32.9 Major depressive disorder, single episode, unspecified; D64.9 Anemia, unspecified; K44.9 Diaphragmatic hernia without obstruction or gangrene; K29.50 Unspecified chronic gastritis without bleeding; R20.2 Paresthesia of skin; R13.14 Dysphagia, pharyngoesophageal phase; Z90.49 Acquired absence of other specified parts of digestive tract; Z86.73 Personal history of transient ischemic attack (TIA), and cerebral infarction without residual deficits; Z79.82 Long term (current) use of aspirin; Z79.899 Other long term (current) drug therapy; Z88.5 Allergy status to narcotic agent; Z87.891 Personal history of nicotine dependence; Z80.1 Family history of malignant neoplasm of trachea, bronchus and lung; Z80.0 Family history of malignant neoplasm of digestive organs
CPT/HCPCS: 96361 ×3; 96374; 99285; 36415; 93005; 88305; 80053; 80048 ×2; 82550; 82553; 84484; 85025 ×3; 85610; 85730; 81001; 87081; 87430; 71046; 70450; 43239; G0378 ×4; J2765; J2704

== ENCOUNTER 2018-07-31 09:08 | Day surgery (SDC) | payer MEDICARE ==
[2018-07-30 11:20] VITALS: BMI 30.1
[~2018-07-31 09:08] MED LIST: LIDOCAINE 1% 20 ML VIAL (10MG/ML) FOR IV START INTRADERMA PRN
[2018-07-31 09:40] VITALS: RESP 16; TEMP 97.3
[2018-07-31] MEDS: LACTATED RINGERS 1,000 ML IV SCH ×2 (09:49→09:51)
[2018-07-31] MEDS ORDERED: PROPOFOL 10 MG/ML 20 ML VIAL IV ONE (09:54)
[2018-07-31] MEDS ORDERED: LIDOCAINE 1% INJ 10MG/ML (20 ML MDV) ONE (09:54)
--- NOTE | 2018-07-31 10:43 | P.PCN ---
Date of Procedure: 07/31/18 Description of Procedure: Brief history: 72-year-old female with a medical history significant for CVA, hypertension, dyslipidemia and prior cholecystectomy follows up from the clinic. The patient had been hospitalized at which time she had reported nausea, vomiting and esophageal dysphagia. EGD was performed and significant for gastritis, multiple antral ulcers and duodenitis as well as hiatal hernia. Biopsies taken were negative for Helicobacter pylori. Esophageal biopsies were negative for eosinophilic esophagitis. The patient has constipation at baseline which is worse on iron therapy. She has a family history of colon cancer in her mother diagnosed in her 40s as well as a personal history of colonic polyps. Last colonoscopy over 5 years ago. Procedure performed: Esophagogastroduodenoscopy with biopsy Colonoscopy with polypectomy Estimated blood loss: Minimal. Preoperative diagnosis: Follow-up gastric ulcer, iron deficiency anemia, high risk colon cancer screening, personal history of colon polyp, family history of colon cancer Anesthesia: MAC Procedure: After informed consent was obtained from the patient was brought into the endoscopy unit and IV sedation was administered by anesthesia under continuous monitoring. Initially upper endoscopy was done. The Olympus GF 190 video endoscope was inserted inserted into the mouth and esophagus intubated without any difficulty and was gradually advanced into the stomach and duodenum and carefully examined. The bulb and second part of the duodenum appeared normal, with previously noted duodenitis had healed. The scope was then withdrawn into the stomach adequately insufflated with air and upon careful examination the antrum and body, cardia and fundus appeared grossly normal with mild scattered erythema in the antrum and body with biopsies taken. Previously seen antral ulcers were healed. The scope was then withdrawn into the esophagus. The GE junction was located at 36 cm to the incisors. It appeared regular with no erythema erosions or ulcerations. Rest of the esophagus appeared normal. Patimarizol nt tolerated the procedure well. At this time the patient continued to remain sedation. Initial digital rectal examination was normal. Olympus CF 190 video colonoscope was then inserted into the rectum and gradually advanced to the cecum without any difficulty. Careful examination was performed as the scope was gradually being withdrawn. The prep was good. The cecum, ascending colon, transverse colon, descending colon, sigmoid colon and rectum appeared normal. Moderate to severe left-sided diverticulosis with numerous small and large mouth diverticula in the sigmoid and descending colon. Sessile 4 mm polyp in the hepatic flexure removed with cold forcep polypectomy. Retroflexion was performed in the rectum and no lesions were noted, mild internal hemorrhoids seen. Patient tolerated the procedure well. Impression: 1. Well-healed antral ulcers. 2. Mild gastritis antrum and body, biopsied. 3. Hepatic flexure polyp removed with cold forcep polypectomy. 4. Mild internal hemorrhoids. 5. Left-sided diverticulosis. Recommendations: Findings of this examination were discussed with the patient as well as her daughter. Okay for high-fiber diet. Await pathology from biopsies. Given family history of colon cancer and history of polyps would recommend repeat colonoscopy in 5 years. Continue PPI therapy.
[2018-07-31 10:56] VITALS: BP 159/84; PULSE 67
== END 2018-07-31 11:30 | disposition home or self-care (01) ==
LOC: ORWHC2ENDO 09:08
PROVIDERS: ATTEND Internal Medicine
DX: K29.50 Unspecified chronic gastritis without bleeding (principal); D12.3 Benign neoplasm of transverse colon; K31.9 Disease of stomach and duodenum, unspecified; K57.30 Diverticulosis of large intestine without perforation or abscess without bleeding; K64.8 Other hemorrhoids; Z12.11 Encounter for screening for malignant neoplasm of colon; Z80.0 Family history of malignant neoplasm of digestive organs; Z86.010 Personal history of colon polyps; Z86.73 Personal history of transient ischemic attack (TIA), and cerebral infarction without residual deficits; I10 Essential (primary) hypertension; E78.5 Hyperlipidemia, unspecified; Z90.49 Acquired absence of other specified parts of digestive tract; Z88.5 Allergy status to narcotic agent; Z79.82 Long term (current) use of aspirin; Z79.899 Other long term (current) drug therapy
CPT/HCPCS: 88305; 45380; 43239; J2001; J2704

== ENCOUNTER 2018-08-14 10:30 | Emergency (ER) | payer MEDICARE ==
[2018-08-14] MEDS ORDERED: DIAZEPAM 5 MG/ML 2 ML INJ IVP STA (11:15)
[2018-08-14] MEDS ORDERED: MECLIZINE 25 MG TAB PO STA (11:15)
--- NOTE | 2018-08-14 11:29 | ED ---
General Adult HPI - General Chief complaint: Dizziness Stated complaint: Dizzy Time Seen by Provider: 08/14/18 11:00 Source: EMS, RN notes reviewed Mode of arrival: EMS Limitations: no limitations - History of Present Illness Initial comments: This is a 72-year-old female presents emergency Department with a past medical history significant for vertigo and a CVA in the past. Patient states she has residual deficit of slight slurred speech. Patient states today she has no worsening of her speech. Patient comes in because of vertigo-like symptoms. Patient states she rolled out of bed and was very dizzy and found or difficult to walk and became nauseated. Patient states shutting her eyes did improve it but it did not make it go away. Patient states moving her head deftly make it worse. Patient denies any chest pain palpitations difficulty breathing shortest breath per patient denies any lightheadedness or near-syncopal episode. Patient denies any numbness or weakness. Patient denies any abdominal pain. Patient denies vomiting though she is nauseated she denies any diarrhea recently. Denies any falls or trauma. - Related Data Home Medications Medication Instructions Recorded Confirmed Cholecalciferol [Vitamin D3] 1,000 unit PO DAILY 05/31/18 08/14/18 Lisinopril [Prinivil] 5 mg PO HS 05/31/18 08/14/18 Multivitamins, Thera [Multivitamin 1 tab PO DAILY 05/31/18 08/14/18 (formulary)] Sertraline HCl [Zoloft] 25 mg PO DAILY 05/31/18 08/14/18 Atorvastatin [Lipitor] 40 mg PO DAILY 07/31/18 08/14/18 Aspirin 81 mg PO DAILY 08/14/18 08/14/18 Ferrous Sulfate [Feosol] 325 mg PO DAILY 08/14/18 08/14/18 Previous Rx's Medication Instructions Recorded Omeprazole [PriLOSEC] 20 mg PO AC-BID #60 cap 06/02/18 Meclizine [Antivert] 25 mg PO TID #20 tab 08/14/18 Allergies Allergy/AdvReac Type Severity Reaction Status Date / Time codeine AdvReac HEADACHE Verified 08/14/18 10:56 Review of Systems ROS Statement: Those systems with pertinent positive or pertinent negative responses have been documented in the HPI. ROS Other: All systems not noted in ROS Statement are negative. Past Medical History Past Medical History: CVA/TIA, GERD/Reflux, Hyperlipidemia, Hypertension Additional Past Medical History / Comment(s): CVA with residual speech issues, dizziness from 2016 History of Any Multi-Drug Resistant Organisms: None Reported Past Surgical History: Cholecystectomy, Hysterectomy, Tonsillectomy Additional Past Surgical History / Comment(s): CYST REMOVED LEFT HAND, DENNY.CATARACTS WITH LENS IMPLANTS., COLONOSCOPY Past Anesthesia/Blood Transfusion Reactions: No Reported Reaction Past Psychological History: No Psychological Hx Reported, Depression Smoking Status: Former smoker - Past Family History Father Family Medical History: Cancer Additional Family Medical History / Comment(s): LUNG Mother Family Medical History: Cancer Additional Family Medical History / Comment(s): COLON General Exam - General Exam Comments Initial Comments: GENERAL: Patient is well-developed and well-nourished. Patient is nontoxic and well- hydrated and is in mild distress. ENT: Neck is soft and supple. No significant lymphadenopathy is noted. Oropharynx is clear. Moist mucous membranes. Neck has full range of motion without elic iting any pain. EYES: The sclera were anicteric and conjunctiva were pink and moist. Extraocular movements were intact and pupils were equal round and reactive to light. Eyelids were unremarkable. Patient has slight nystagmus looking to the left. PULMONARY: Unlabored respirations. Good breath sounds bilaterally. No audible rales rhonchi or wheezing was noted. CARDIOVASCULAR: There is a regular rate and rhythm without any murmurs gallops or rubs. ABDOMEN: Soft and nontender with normal bowel sounds. SKIN: Skin is clear with no lesions or rashes and otherwise unremarkable. NEUROLOGIC: Patient is alert and oriented x3. Cranial nerves II through XII are grossly intact. Motor and sensory are also intact. Patient's speech is slightly slurred though she states this is her baseline sensory stroke. Symmetrical smile. Cerebellar exam grossly intact. MUSCULOSKELETAL: Normal extremities with adequate strength and full range of motion. No lower extremity swelling or edema. No calf tenderness. LYMPHATICS: No significant lymphadenopathy is noted PSYCHIATRIC: Normal psychiatric evaluation. Limitations: no limitations Course Vital Signs 08/14/18 08/14/18 08/14/18 10:58 11:02 11:30 Temperature 98.4 F Pulse Rate 61 85 Respiratory 16 18 18 Rate Blood Pressure 141/63 151/65 O2 Sat by Pulse 97 95 96 Oximetry 08/14/18 12:00 Temperature Pulse Rate 71 Respiratory 18 Rate Blood Pressure O2 Sat by Pulse 96 Oximetry Medical Decision Making - Medical Decision Making EKG shows normal sinus rhythm at 69 bpm MI interval is 186 QRS is 84 QT interval is 434 QTC is 465. Patient's EKG shows no ST segment elevation or depression or T wave abnormalities are noted. Patient's chest x-ray shows no acute abnormality. Patient was able to get up at the side of the bed and move around better than when she came in and she felt as though she can go home with the assistance of her daughter and granddaughter. - Lab Data Result diagrams: 08/14/18 11:10 08/14/18 11:10 Lab Results 08/14/18 08/14/18 08/14/18 Range/Units 11:10 11:10 11:10 WBC 9.6 (3.8-10.6) k/uL RBC 4.71 (3.80-5.40) m/uL Hgb 13.2 (11.4-16.0) gm/dL Hct 41.8 (34.0-46.0) % MCV 88.7 (80.0-100.0) fL MCH 28.0 (25.0-35.0) pg MCHC 31.6 (31.0-37.0) g/dL RDW 13.1 (11.5-15.5) % Plt Count 228 (150-450) k/uL Neutrophils % 81 % Lymphocytes % 14 % Monocytes % 3 % Eosinophils % 1 % Basophils % 1 % Neutrophils # 7.8 H (1.3-7.7) k/uL Lymphocytes # 1.3 (1.0-4.8) k/uL Monocytes # 0.3 (0-1.0) k/uL Eosinophils # 0.1 (0-0.7) k/uL Basophils # 0.0 (0-0.2) k/uL PT 10.1 (9.0-12.0) sec INR 0.9 (<1.2) APTT 21.6 L (22.0-30.0) sec Sodium 142 (137-145) mmol/L Potassium 4.6 (3.5-5.1) mmol/L Chloride 109 H (98-107) mmol/L Carbon Dioxide 23 (22-30) mmol/L Anion Gap 10 mmol/L BUN 16 (7-17) mg/dL Creatinine 0.58 (0.52-1.04) mg/dL Est GFR (CKD-EPI)AfAm >90 (>60 ml/min/1.73 sqM) Est GFR (CKD-EPI)NonAf >90 (>60 ml/min/1.73 sqM) Glucose 115 H (74-99) mg/dL Calcium 9.7 (8.4-10.2) mg/dL Magnesium 1.8 (1.6-2.3) mg/dL Total Bilirubin 0.6 (0.2-1.3) mg/dL AST 30 (14-36) U/L ALT 33 (9-52) U/L Alkaline Phosphatase 122 (38-126) U/L Troponin I (0.000-0.034) ng/mL Total Protein 7.0 (6.3-8.2) g/dL Albumin 4.1 (3.5-5.0) g/dL 08/14/18 Range/Units 11:10 WBC (3.8-10.6) k/uL RBC (3.80-5.40) m/uL Hgb (11.4-16.0) gm/dL Hct (34.0-46.0) % MCV (80.0-100.0) fL MCH (25.0-35.0) pg MCHC (31.0-37.0) g/dL RDW (11.5-15.5) % Plt Count (150-450) k/uL Neutrophils % % Lymphocytes % % Monocytes % % Eosinophils % % Basophils % % Neutrophils # (1.3-7.7) k/uL Lymphocytes # (1.0-4.8) k/uL Monocytes # (0-1.0) k/uL Eosinophils # (0-0.7) k/uL Basophils # (0-0.2) k/uL PT (9.0-12.0) sec INR (<1.2) APTT (22.0-30.0) sec Sodium (137-145) mmol/L Potassium (3.5-5.1) mmol/L Chloride (98-107) mmol/L Carbon Dioxide (22-30) mmol/L Anion Gap mmol/L BUN (7-17) mg/dL Creatinine (0.52-1.04) mg/dL Est GFR (CKD-EPI)AfAm (>60 ml/min/1.73 sqM) Est GFR (CKD-EPI)NonAf (>60 ml/min/1.73 sqM) Glucose (74-99) mg/dL Calcium (8.4-10.2) mg/dL Magnesium (1.6-2.3) mg/dL Total Bilirubin (0.2-1.3) mg/dL AST (14-36) U/L ALT (9-52) U/L Alkaline Phosphatase (38-126) U/L Troponin I <0.012 (0.000-0.034) ng/mL Total Protein (6.3-8.2) g/dL Albumin (3.5-5.0) g/dL Disposition Clinical Impression: Vertigo Disposition: HOME SELF-CARE Condition: Good Instructions (If sedation given, give patient instructions): Vertigo (ED) Prescriptions: Meclizine [Antivert] 25 mg PO TID #20 tab Is patient prescribed a controlled substance at d/c from ED?: No Referrals: Ruben Brooks MD [Primary Care Provider] - 1-2 days Time of Disposition: 13:58
[2018-08-14 11:42] LABS: Basophils % (A) 1 %; Eosinophils # (A) 0.1 k/uL (0-0.7); Eosinophils % (A) 1 %; HCT 41.8 % (34.0-46.0); HGB 13.2 gm/dL (11.4-16.0); Lymphocytes # (A) 1.3 k/uL (1.0-4.8); Lymphocytes % (A) 14 %; MCHC 31.6 g/dL (31.0-37.0); MCV 88.7 fL (80.0-100.0); Mean Platelet Volume 7.8; Monocytes # (A) 0.3 k/uL (0-1.0); Monocytes % (A) 3 %; Neutrophils # (A) 7.8 k/uL (1.3-7.7); Neutrophils % (A) 81 %; Platelet Count 228 k/uL (150-450); RBC 4.71 m/uL (3.80-5.40); RDW 13.1 % (11.5-15.5); WBC 9.6 k/uL (3.8-10.6)
[2018-08-14 11:53] LABS: ALT 33 U/L (9-52); AST 30 U/L (14-36); Albumin 4.1 g/dL (3.5-5.0); Alkaline Phosphatase 122 U/L (38-126); Anion Gap 10 mmol/L; Blood Urea Nitrogen 16 mg/dL (7-17); Calcium 9.7 mg/dL (8.4-10.2); Carbon Dioxide 23 mmol/L (22-30); Chloride 109 mmol/L (98-107); Glucose 115 mg/dL (74-99); Magnesium 1.8 mg/dL (1.6-2.3); Potassium 4.6 mmol/L (3.5-5.1); Sodium 142 mmol/L (137-145); Total Bilirubin 0.6 mg/dL (0.2-1.3)
--- NOTE | 2018-08-14 11:54 | XR ---
EXAMINATION TYPE: XR chest 2V DATE OF EXAM: 08/14/2018 COMPARISON: 05/31/2018 HISTORY: 72-year-old female with chest pain TECHNIQUE: AP and lateral views FINDINGS: Heart upper limits of normal in size. Mild atherosclerotic arch calcifications. Pulmonary vasculature within normal limits. No consolidation or pleural effusion. IMPRESSION: Borderline heart size without acute cardiopulmonary process.
[2018-08-14 12:02] LABS: INR 0.9 (<1.2); Prothrombin Time 10.1 sec (9.0-12.0)
[2018-08-14 12:13] LABS: Partial Thromboplastin Time 21.6 sec (22.0-30.0)
[2018-08-14 15:06] VITALS: BP 148/48; PULSE 65; RESP 16; TEMP 98.6
== END 2018-08-14 14:45 | disposition home or self-care (01) ==
LOC: EC 10:30
DX: R42 Dizziness and giddiness (principal); R11.0 Nausea; I69.328 Other speech and language deficits following cerebral infarction; E78.5 Hyperlipidemia, unspecified; I10 Essential (primary) hypertension; F32.9 Major depressive disorder, single episode, unspecified; Z87.891 Personal history of nicotine dependence; Z79.82 Long term (current) use of aspirin; Z79.899 Other long term (current) drug therapy; Z88.5 Allergy status to narcotic agent
CPT/HCPCS: 36415; 93005; 80053; 83735; 84484; 85025; 85610; 85730; 71046; 99285; 96374; J3360

== ENCOUNTER 2019-08-01 12:03 | Emergency (ER) | payer MEDICARE ==
[2019-08-01 12:23] VITALS: TEMP 97.9
[2019-08-01] MEDS ORDERED: DIPH,PERTUS(ACELL)TETVAC-LF 0.5 ML VIAL IM ONE (13:03)
--- NOTE | 2019-08-01 13:31 | XR ---
EXAMINATION TYPE: XR hand complete RT DATE OF EXAM: 08/01/2019 CLINICAL HISTORY: Fall injury with lacerations and pain TECHNIQUE: Frontal, lateral and oblique images of the right hand are obtained. COMPARISON: None. FINDINGS: There is no acute fracture/dislocation evident in the right hand. Incomplete extension of the phalanges with moderate narrowing throughout the PIP and DIP joints and with mild spurring. Mild diffuse soft tissue swelling. Diffuse demineralization. IMPRESSION: There is no acute fracture or dislocation in the right hand.
--- NOTE | 2019-08-01 13:49 | ED ---
Fall HPI - General Chief Complaint: Fall Stated Complaint: Fall-Hand Injury Time Seen by Provider: 08/01/19 12:25 Source: patient, RN notes reviewed Mode of arrival: ambulatory Limitations: no limitations - History of Present Illness Initial Comments: 73-year-old female presents emergency Department with chief complaint of right hand injury. Patient reportedly tripped last night falling striking her hand. Patient has multiple abrasions she is unsure when her last tetanus was. Patient complains of right hand pain, swelling bruising. There is no significant head injury no complaints of head neck or back pain no hip pain. Patient offers no other symptoms. Patient is right-hand dominant. - Related Data Home Medications Medication Instructions Recorded Confirmed Cholecalciferol [Vitamin D3 (25 1,000 unit PO DAILY 05/31/18 08/14/18 Mcg = 1000 Iu)] Lisinopril [Prinivil] 5 mg PO HS 05/31/18 08/14/18 Multivitamins, Thera [Multivitamin 1 tab PO DAILY 05/31/18 08/14/18 (formulary)] Sertraline HCl [Zoloft] 25 mg PO DAILY 05/31/18 08/14/18 Atorvastatin [Lipitor] 40 mg PO DAILY 07/31/18 08/14/18 Aspirin 81 mg PO DAILY 08/14/18 08/14/18 Ferrous Sulfate [Feosol] 325 mg PO DAILY 08/14/18 08/14/18 Previous Rx's Medication Instructions Recorded Omeprazole [PriLOSEC] 20 mg PO AC-BID #60 cap 06/02/18 Meclizine [Antivert] 25 mg PO TID #20 tab 08/14/18 Allergies Allergy/AdvReac Type Severity Reaction Status Date / Time codeine AdvReac HEADACHE Verified 08/01/19 12:23 Review of Systems ROS Statement: Those systems with pertinent positive or pertinent negative responses have been documented in the HPI. ROS Other: All systems not noted in ROS Statement are negative. Past Medical History Past Medical History: CVA/TIA, GERD/Reflux, Hyperlipidemia, Hypertension Additional Past Medical History / Comment(s): CVA with residual speech issues, dizziness from 2016 History of Any Multi-Drug Resistant Organisms: None Reported Past Surgical History: Cholecystectomy, Hysterectomy, Tonsillectomy Additional Past Surgical History / Comment(s): CYST REMOVED LEFT HAND, DENNY.CATARACTS WITH LENS IMPLANTS., COLONOSCOPY Past Anesthesia/Blood Transfusion Reactions: No Reported Reaction Past Psychological History: No Psychological Hx Reported, Depression Smoking Status: Former smoker Past Alcohol Use History: None Reported Past Drug Use History: None Reported - Past Family History Father Family Medical History: Cancer Additional Family Medical History / Comment(s): LUNG Mother Family Medical History: Cancer Additional Family Medical History / Comment(s): COLON General Exam Limitations: no limitations General appearance: alert, in no apparent distress Head exam: Present: atraumatic, normocephalic, normal inspection Neck exam: Present: normal inspection. Absent: tenderness, meningismus, lymphadenopathy Respiratory exam: Present: normal lung sounds bilaterally. Absent: respiratory distress, wheezes, rales, rhonchi, stridor Cardiovascular Exam: Present: regular rate, normal rhythm, normal heart sounds. Absent: systolic murmur, diastolic murmur, rubs, gallop, clicks Extremities exam: Present: other (Multiple abrasions to MCP region, palmar aspect of the right hand, tenderness over the second to third metacarpal, ecchymotic, swollen noted no wrist tenderness, no forearm tenderness) Course Vital Signs 08/01/19 12:20 Temperature 97.9 F Pulse Rate 64 Respiratory 20 Rate Blood Pressure 118/71 O2 Sat by Pulse 96 Oximetry Procedures - Orthopedic Splinting/Casting Injury #1 Side: right Upper Extremity Injury Location: short arm, hand Upper Extremity Immobilizer: volar splint, synthetic pre-padded splint Medical Decision Making - Medical Decision Making There is a questionable fracture of the third metacarpal at the base. Patient was splinted and follow up with orthopedics. Disposition Clinical Impression: Fall, Fracture of third metacarpal bone of right hand Disposition: HOME SELF-CARE Condition: Stable Instructions (If sedation given, give patient instructions): Hand Fracture (ED) Additional Instructions: Please return to the Emergency Department if symptoms worsen or any other concerns. Is patient prescribed a controlled substance at d/c from ED?: No Referrals: Ruben Brooks MD [Primary Care Provider] - 1-2 days Vivek Rubalcava MD [STAFF PHYSICIAN] - 1-2 days Time of Disposition: 13:49
[2019-08-01 14:08] VITALS: BP 120/78; PULSE 66; RESP 18
== END 2019-08-01 14:08 | disposition home or self-care (01) ==
LOC: EC 12:03
DX: S62.312A Displaced fracture of base of third metacarpal bone, right hand, initial encounter for closed fracture (principal); E78.5 Hyperlipidemia, unspecified; I10 Essential (primary) hypertension; F32.9 Major depressive disorder, single episode, unspecified; Z87.891 Personal history of nicotine dependence; Z88.5 Allergy status to narcotic agent; Z79.82 Long term (current) use of aspirin; Z79.899 Other long term (current) drug therapy; Z86.73 Personal history of transient ischemic attack (TIA), and cerebral infarction without residual deficits; Z23 Encounter for immunization; W01.10XA Fall on same level from slipping, tripping and stumbling with subsequent striking against unspecified object, initial encounter; Y92.89 Other specified places as the place of occurrence of the external cause
CPT/HCPCS: 29125; 90471; 90715; 99283

== ENCOUNTER → 2020-04-14 | Outpatient (CLI) | payer MEDICARE ==
--- NOTE | 2020-04-14 12:04 | MR ---
EXAMINATION TYPE: MR lumbar spine wo con DATE OF EXAM: 04/14/2020 COMPARISON: None HISTORY: right hip pain TECHNIQUE: Multiplanar, multisequence images of the lumbar spine were acquired. L1-L2: Normal disc appearance without desiccation. No herniation, protrusion or disc bulging. No ca nal stenosis is present. Foramina are patent bilaterally. L2-L3: Minimal posterior disc bulge causes only slight anterior mass effect on the thecal sac. L3-L4: Minimal disc bulge is somewhat eccentric towards the left encroaching minimally on the neural foramen. L4-L5: Facet arthropathy with hypertrophy of the ligamentum flavum is noted. Some posterior lateral m ass effect on the thecal sac from the right. Minimal disc bulge effaces the anterior thecal sac. L5-S1: Posterior extension endplate disc complex is noted. There is facet arthropathy change. Circumf erential extension endplate disc complex encroaches on the neural foramina. Lumbar segments are intact. No paraspinal masses are identified. Conus medullaris has a normal appe arance. There is no significant spinal stenosis. Loss of disc height signal is greatest at L5-S1, is multilevel spondylosis with endplate discogenic marrow signal change. IMPRESSION: Mild degenerative disc disease, facet arthropathy. Foraminal encroachment as described.
== END | disposition home or self-care (01) ==
LOC: RADMRIMAIN 11:06
PROVIDERS: ATTEND Family Medicine
DX: M51.36 Other intervertebral disc degeneration, lumbar region (principal); M47.816 Spondylosis without myelopathy or radiculopathy, lumbar region
CPT/HCPCS: 72148

== ENCOUNTER 2020-06-20 18:16 | Observation (INO) | payer MEDICARE ==
--- NOTE | 2020-06-20 18:58 | ED ---
General Adult HPI - General Chief complaint: Fall Stated complaint: fall, shoulder injury Time Seen by Provider: 06/20/20 18:19 Source: EMS Mode of arrival: EMS Limitations: no limitations - History of Present Illness Initial comments: Dictation was produced using [employer] dictation software. please excuse any grammatical, word or spelling errors. This patient was cared for during a federal and state declared state of emergency secondary to Covid 19 Chief Complaint: 74-year-old female brought in for right shoulder pain History of Present Illness: That he 4-year-old female was presents today with right shoulder pain. Patient allegedly was walking her dog when the dog pulled really hard causing patient to fall. Patient landed obliquely in her right side. She did complain of striking her face on the ground. Patient denied any loss of consciousness. She does not take any blood thinners. She was outside was unable to get up for several minutes. At some point EMS was called patient is brought to the emergency room. Patient was given analgesics and antiemetics by prehospital providers. She states that the worst of her symptoms to the right shoulder. She denies any chest pain or pelvis pain. No other pain to the extremities. The ROS documented in this emergency department record has been reviewed and confirmed by me. Those systems with pertinent positive or negative responses have been documented in the HPI. All other systems are other negative and/or noncontributory. PHYSICAL EXAM: General Impression: Alert and oriented x3, not in acute distress HEENT: Slight nasal bridge swelling, no septal hematoma, some dried blood at the bilateral nares, extra-ocular movements intact, pupils equal and reactive to light bilaterally, mucous membranes moist. Cardiovascular: Heart regular rate and rhythm Chest: Able to complete full sentences, no retractions, no tachypnea Abdomen: abdomen soft, non-tender, non-distended, no organomegaly Musculoskeletal: Pulses present and equal in all extremities, no peripheral edema, tenderness to palpation over the proximal right humerus Motor: no focal deficits noted Neurological: CN II-XII grossly intact, no focal motor or sensory deficits noted Skin: Intact with no visualized rashes Psych: Normal affect and mood ED course: 74-year-old female presents after fall. Vital signs upon arrival are within acceptable limits. Chest x-ray and pelvis x-ray unremarkable. Shoulder x-ray shows proximal humerus fracture. Computed tomography scan of the brain and C-spine shows no acute processes. Disposition options were discussed with patient and patient's daughter who is one of the employees to our hospital. they felt more confident patient be admitted to observation with orthopedic surgery consultation. Discussed patient case to with Dr. Winter who is willing to accept patients care. Patient be admitted for intractable arm pain. Splint and sling were applied. - Related Data Home Medications Medication Instructions Recorded Confirmed Cholecalciferol [Vitamin D3 (25 1,000 unit PO DAILY 05/31/18 08/14/18 Mcg = 1000 Iu)] Multivitamins, Thera [Multivitamin 1 tab PO DAILY 05/31/18 08/14/18 (formulary)] Sertraline HCl [Zoloft] 25 mg PO DAILY 05/31/18 08/14/18 lisinopriL [Prinivil] 5 mg PO HS 05/31/18 08/14/18 Atorvastatin [Lipitor] 40 mg PO DAILY 07/31/18 08/14/18 Aspirin 81 mg PO DAILY 08/14/18 08/14/18 Ferrous Sulfate [Feosol] 325 mg PO DAILY 08/14/18 08/14/18 Previous Rx's Medication Instructions Recorded Omeprazole [PriLOSEC] 20 mg PO AC-BID #60 cap 06/02/18 Meclizine [Antivert] 25 mg PO TID #20 tab 08/14/18 Allergies Allergy/AdvReac Type Severity Reaction Status Date / Time codeine AdvReac HEADACHE Verified 08/01/19 12:23 Review of Systems ROS Statement: Those systems with pertinent positive or pertinent negative responses have been documented in the HPI. ROS Other: All systems not noted in ROS Statement are negative. Past Medical History Past Medical History: CVA/TIA, GERD/Reflux, Hyperlipidemia, Hypertension Additional Past Medical History / Comment(s): CVA with residual speech issues, dizziness from 2016 History of Any Multi-Drug Resistant Organisms: None Reported Past Surgical History: Cholecystectomy, Hysterectomy, Tonsillectomy Additional Past Surgical History / Comment(s): CYST REMOVED LEFT HAND, DENNY.CATARACTS WITH LENS IMPLANTS., COLONOSCOPY Past Anesthesia/Blood Transfusion Reactions: No Reported Reaction Past Psychological History: No Psychological Hx Reported, Depression Smoking Status: Former smoker Past Alcohol Use History: None Reported Past Drug Use History: None Reported - Past Family History Father Family Medical History: Cancer Additional Family Medical History / Comment(s): LUNG Mother Family Medical History: Cancer Additional Family Medical History / Comment(s): COLON General Exam Limitations: no limitations Course Vital Signs 06/20/20 06/20/20 18:18 20:06 Temperature 97.4 F L Pulse Rate 64 70 Respiratory 18 18 Rate Blood Pressure 143/82 159/71 O2 Sat by Pulse 96 95 Oximetry Procedures - Orthopedic Splinting/Casting Injury #1 Side: right (proximal humerus fracture) Additional Comments: coaopt splint Disposition Clinical Impression: Fall, Intractable pain, Proximal humerus fracture Disposition: ADMITTED IP TO THIS [facility] Condition: Fair Referrals: Ruben Brooks MD [Primary Care Provider] - 1-2 days Decision Time: 20:58
[2020-06-20] MEDS ORDERED: HYDROmorphone 0.5 MG/0.5 ML SYRINGE IVP STA (19:11)
--- NOTE | 2020-06-20 19:12 | XR ---
EXAMINATION TYPE: XR shoulder complete RT DATE OF EXAM: 06/20/2020 COMPARISON: NONE HISTORY: Fall. Shoulder pain. TECHNIQUE: 3 views FINDINGS: There is comminuted slightly impacted transverse fracture of the right humeral neck. There is no dislocation. Scapula is intact. AC joint is intact. IMPRESSION: Acute comminuted fracture of the right humeral neck with mild impaction.
--- NOTE | 2020-06-20 19:14 | XR ---
EXAMINATION TYPE: XR chest 1V DATE OF EXAM: 06/20/2020 COMPARISON: 08/14/2018 HISTORY: Fall. Pain. TECHNIQUE: FINDINGS: There is no heart failure nor confluent pneumonic infiltrate. Costophrenic angles are clear . There are no hilar masses. There are chest leads. IMPRESSION: No active cardiopulmonary disease. No adverse change compared to old exam. Normal heart.
--- NOTE | 2020-06-20 19:22 | XR ---
EXAMINATION TYPE: XR pelvis AP view DATE OF EXAM: 06/20/2020 COMPARISON: NONE HISTORY: Pain. Fall. TECHNIQUE: FINDINGS: The pelvic ring is intact. Proximal femurs appear intact. Hip joint spaces are fairly millie l. Sacroiliac joints are intact. IMPRESSION: Negative exam. No fracture seen.
--- NOTE | 2020-06-20 19:37 | CT ---
EXAMINATION TYPE: CT brain buddy hernandez con DATE OF EXAM: 06/20/2020 COMPARISON: 05/31/2018 CT brain HISTORY: Fall. Headache. Neck pain CT DLP: 1226 mGycm Automated exposure control for dose reduction was used. There is 3.5 x 2.5 cm area of hypodensity in the left posterior frontal lobe cortex consistent with a n old infarct. There is no mass effect nor midline shift. There is no sign of intracranial hemorrhage . The calvarium is intact. The skull base is intact. Mastoid sinuses appear normal. The cervical vertebra have fairly normal alignment. There is no significant disc space narrowing. The re is no compression fracture. Facet joints are intact. IMPRESSION: Negative CT scan of the cervical spine. No fracture. 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 No acute intracranial abnormality.
--- NOTE | 2020-06-20 19:41 | CT ---
EXAMINATION TYPE: CT facial bones wo con DATE OF EXAM: 06/20/2020 COMPARISON: None HISTORY: Fall. CT DLP: 1226 mGycm Automated exposure control for dose reduction was used. Images were obtained from the bottom of the mandible to the top of the frontal sinuses without contra st. The mandibular ring is intact. Temporomandibular joints are intact. Zygomatic arches appear normal. T he maxilla is intact. There is fairly normal aeration of the paranasal sinuses. Nasal bone is intact. The globes are symmetric. There is no evidence of orbital mass. There is no evidence of a blowout fracture. There is increased density in the anterior nasopharynx at the nares that could be blood clot or debris. IMPRESSION: No evidence of facial bone fracture.
[2020-06-20] MEDS ORDERED: ONDANSETRON 4 MG/2 ML VIAL IVP PRN (20:53)
[2020-06-20] MEDS ORDERED: oxyCODONE-APAP 5-325MG 1 EACH TAB PO PRN (20:53)
[2020-06-20] MEDS ORDERED: NALOXONE 0.4 MG/ML 1 ML VIAL IV PRN (20:53)
[2020-06-20] MEDS ORDERED: SODIUM CHLORIDE 0.9% 1,000 ML IV SCH (21:00)
[2020-06-20 21:01] LABS: Appearance,Urine Clear (Clear); Bilirubin,Urine Negative (Negative); Blood,Urine Negative (Negative); Color,Urine Light Yellow; Glucose,Urine (UA) Negative (Negative); Ketones,Urine Negative (Negative); Leukocyte Esterase,Urine Trace (Negative); Mucus,Urine Rare /hpf; Nitrite,Urine Negative (Negative); Protein,Urine Negative (Negative); RBC,Urine 1 /hpf (0-5); Specific Gravity,Urine 1.012 (1.001-1.035); Squamous Epithelial Cell,Urine 1 /hpf (0-4); Urobilinogen,Urine <2.0 mg/dL (<2.0); WBC,Urine 4 /hpf (0-5)
[2020-06-20] MEDS: HYDROcodone/APAP 5-325MG 1 EACH TAB PO PRN (21:17)
[2020-06-20 21:29] LABS: Basophils % (A) 0 %; Eosinophils # (A) 0.1 k/uL (0-0.7); Eosinophils % (A) 1 %; HCT 33.4 % (34.0-46.0); HGB 11.4 gm/dL (11.4-16.0); Lymphocytes # (A) 0.8 k/uL (1.0-4.8); Lymphocytes % (A) 8 %; MCH 30.3 pg (25.0-35.0); MCHC 34.1 g/dL (31.0-37.0); MCV 88.9 fL (80.0-100.0); Mean Platelet Volume 7.3; Monocytes # (A) 0.2 k/uL (0-1.0); Monocytes % (A) 2 %; Neutrophils # (A) 8.7 k/uL (1.3-7.7); Neutrophils % (A) 89 %; Platelet Count 165 k/uL (150-450); RBC 3.76 m/uL (3.80-5.40); RDW 12.4 % (11.5-15.5); WBC 9.8 k/uL (3.8-10.6)
[2020-06-20 21:38] LABS: ALT 16 U/L (4-34); AST 24 U/L (14-36); African American GFR (CKD) >90 (>60 ml/min/1.73 sqM); Albumin 2.8 g/dL (3.5-5.0); Alkaline Phosphatase 82 U/L (38-126); Anion Gap 6 mmol/L; Blood Urea Nitrogen 14 mg/dL (7-17); Calcium 6.8 mg/dL (8.4-10.2); Carbon Dioxide 21 mmol/L (22-30); Chloride 113 mmol/L (98-107); Glucose 117 mg/dL (74-99); Non-African American GFR(CKD) >90 (>60 ml/min/1.73 sqM); Potassium 3.3 mmol/L (3.5-5.1); Sodium 140 mmol/L (137-145); Total Bilirubin 0.4 mg/dL (0.2-1.3); Total Protein 5.2 g/dL (6.3-8.2)
[2020-06-20 21:47] LABS: INR 1.1 (<1.2); Prothrombin Time 11.6 sec (9.0-12.0)
[2020-06-20 21:48] LABS: Partial Thromboplastin Time 18.9 sec (22.0-30.0)
[2020-06-20] MEDS ORDERED: POTASSIUM CHLORIDE ER 20 MEQ TAB.ER PO STA (23:11)
[2020-06-20] MEDS ORDERED: ATORVASTATIN 40 MG TAB PO SCH (23:15)
[2020-06-20] MEDS: SODIUM CHLORIDE 0.9% 1,000 ML IV SCH (23:30)
[2020-06-20] MEDS: HYDROmorphone 0.5 MG/0.5 ML SYRINGE IVP PRN (23:58)
[2020-06-21] MEDS: HYDROcodone/APAP 5-325MG 1 EACH TAB PO PRN ×2 (02:16→06:22)
[2020-06-21] MEDS: HYDROmorphone 0.5 MG/0.5 ML SYRINGE IVP PRN ×2 (03:58→08:55)
[2020-06-21 08:15] VITALS: BP 121/67; PULSE 67; RESP 18; TEMP 98.2
[2020-06-21] MEDS: SODIUM CHLORIDE 0.9% 1,000 ML IV SCH (08:56)
[2020-06-21] MEDS ORDERED: ASPIRIN 81 MG PO SCH (09:00)
[2020-06-21] MEDS ORDERED: SERTRALINE 25 MG TAB PO SCH (09:00)
[2020-06-21] MEDS ORDERED: CHOLECALCIFEROL 25 MCG (1000 IU) TABLET PO SCH (09:00)
[2020-06-21] MEDS ORDERED: ASCORBIC ACID 500 MG TAB PO SCH (09:00)
[2020-06-21] MEDS ORDERED: HYDROcodone/APAP 7.5-325MG 1 EACH TAB PO PRN ×2 (11:10)
--- NOTE | 2020-06-21 11:30 | P.CNOR ---
History of Present Illness - HPI Consult date: 06/21/20 History of present illness: This is a 74-year-old female who was admitted after a fall. Patient was evaluated in the emergency room and x-rays revealed a right proximal humerus fracture. Patient is seen and evaluated at bedside today. Patient states that she was outside walking her dog when she fell. Patient states that she is right-hand dominant. Patient's past medical history is significant for CVA/TIA, GERD, hyperlipidemia and hypertension. Patient denies any numbness, weakness, tingling or fever/chills. Review of Systems See HPI. 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, dizziness from 2016 History of Any Multi-Drug Resistant Organisms: None Reported Past Surgical History: Cholecystectomy, Hysterectomy, Tonsillectomy Additional Past Surgical History / Comment(s): CYST REMOVED LEFT HAND, DENNY.CATARACTS WITH LENS IMPLANTS., COLONOSCOPY Past Anesthesia/Blood Transfusion Reactions: No Reported Reaction Past Psychological History: No Psychological Hx Reported, Depression Additional Psychological History / Comment(s): Pt had depression when passed in 2016. Takes zoloft Smoking Status: Former smoker Past Alcohol Use History: None Reported Additional Past Alcohol Use History / Comment(s): smoked 40 years 1 ppd quit 2006 Past Drug Use History: None Reported - Past Family History Father Family Medical History: Cancer Additional Family Medical History / Comment(s): LUNG Mother Family Medical History: Cancer Additional Family Medical History / Comment(s): COLON Medications and Allergies Home Medications Medication Instructions Recorded Confirmed Type Cholecalciferol [Vitamin D3 (25 1,000 unit PO DAILY 05/31/18 06/20/20 History Mcg = 1000 Iu)] Sertraline HCl [Zoloft] 25 mg PO DAILY 05/31/18 06/20/20 History lisinopriL [Prinivil] 5 mg PO HS 05/31/18 06/20/20 History Atorvastatin [Lipitor] 40 mg PO HS 07/31/18 06/20/20 History Aspirin 81 mg PO DAILY 08/14/18 06/20/20 History Ascorbic Acid [Vitamin C] 500 mg PO DAILY 06/20/20 06/20/20 History Allergies Allergy/AdvReac Type Severity Reaction Status Date / Time codeine AdvReac HEADACHE Verified 06/20/20 21:10 Physical Examination On exam patient is lying comfortably in bed in no acute distress. Patient is alert and oriented 3. Splint and sling are removed from the right upper extremity. Skin is intact. There is mild swelling. Patient has full range of motion of the right wrist and hand. Radial pulse is 2+. Sensation intact. The right upper extremity is warm and well perfused. Neurovascular status and circulatory status are intact. Results X-ray of the right shoulder dated 06/20/2020 reveal a right proximal humerus fracture. - Labs Labs: Abnormal Lab Results - Last 24 Hours (Table) 06/20/20 06/20/20 06/20/20 Range/Units 20:54 21:22 21:22 RBC 3.76 L (3.80-5.40) m/uL Hct 33.4 L (34.0-46.0) % Neutrophils # 8.7 H (1.3-7.7) k/uL Lymphocytes # 0.8 L (1.0-4.8) k/uL APTT 18.9 L (22.0-30.0) sec Potassium (3.5-5.1) mmol/L Chloride (98-107) mmol/L Carbon Dioxide (22-30) mmol/L Glucose (74-99) mg/dL Calcium (8.4-10.2) mg/dL Total Protein (6.3-8.2) g/dL Albumin (3.5-5.0) g/dL Ur Leukocyte Esterase Trace H (Negative) Urine Mucus Rare H (None) /hpf 06/20/20 Range/Units 21:22 RBC (3.80-5.40) m/uL Hct (34.0-46.0) % Neutrophils # (1.3-7.7) k/uL Lymphocytes # (1.0-4.8) k/uL APTT (22.0-30.0) sec Potassium 3.3 L (3.5-5.1) mmol/L Chloride 113 H (98-107) mmol/L Carbon Dioxide 21 L (22-30) mmol/L Glucose 117 H (74-99) mg/dL Calcium 6.8 L (8.4-10.2) mg/dL Total Protein 5.2 L (6.3-8.2) g/dL Albumin 2.8 L (3.5-5.0) g/dL Ur Leukocyte Esterase (Negative) Urine Mucus (None) /hpf H & H 06/20/20 Range/Units 21:22 Hgb 11.4 (11.4-16.0) gm/dL Hct 33.4 L (34.0-46.0) % Coagulation 06/20/20 Range/Units 21:22 INR 1.1 (<1.2) Result Diagrams: 06/20/20 21:22 06/21/20 04:52 Assessment and Plan (1) Fall Current Visit: Yes Status: Acute Code(s): W19.XXXA - UNSPECIFIED FALL, INITIAL ENCOUNTER SNOMED Code(s): 5869142 (2) Proximal humerus fracture Current Visit: Yes Status: Acute Code(s): S42.209A - UNSP FRACTURE OF UPPER END OF UNSP HUMERUS, INIT FOR CLOS FX SNOMED Code(s): 674693039 Plan: 1. Maintain arm sling to right upper extremity. 2. Continue ice and elevation for the right upper extremity. 3. Continue pain control. 4. No surgical intervention planned. Patient may follow up as an outpatient.
[2020-06-21] MEDS ORDERED: NAPROXEN 250 MG TAB PO SCH (12:30)
[2020-06-21] MEDS ORDERED: lisinopriL 5 MG TAB PO SCH (21:00)
--- NOTE | 2020-06-21 23:42 | P.HPIM ---
History of Present Illness H&P Date: 06/21/20 Chief Complaint: Fracture right arm History of presenting complaint: This is a very pleasant 74-year-old patient of Dr. barrios. Chronic stable medical conditions include GERD, hyperlipidemia, hypertension, residual dysarthria from a stroke in 2016. Patient is with her daughter and Dr. Da Silva take the dog for a walk. She had them on the leash. The dog suddenly lurched and she fell falling on the right arm.. X-ray did confirm a right humerus fracture. Patient significant pain on presentation. Orthopedics consulted. Review of systems: GEN.: None EYES: None HEENT: None NECK: None RESPIRATORY: None CARDIOVASCULAR: None GASTROINTESTINAL: None GENITOURINARY: None MUSCULOSKELETAL: As above LYMPHATICS: None HEMATOLOGICAL: None PSYCHIATRY: None NEUROLOGICAL: Slow speech] Past medical history to include: GERD, hyperlipidemia, hypertension, stroke in 2016 with residual dysarthria, anxiety depression Social history: Smoke for 40 years 1 pack a day to 2006. Aicha. Lives with her daughter Sujey. Physical examination: VITAL SIGNS: 97.4, 64, 18, 143 x 22, 96% room air GENERAL: BMI 32.9, laying in bed, awake. EYES: Pupils equal. Conjunctiva normal. HEENT: External appearance of nose and ears normal, oral cavity grossly normal. NECK: JVD not raised; masses not palpable. HEART: First and second heart sounds are normal; no edema. LUNGS: Respiratory rate normal; clear to auscultation. ABDOMEN: Soft, nontender, liver spleen not palpable, no masses palpable. EXTREMITIES: Right arm in a sling PSYCH: Alert and oriented x3; mood and affect normal. NEUROLOGICAL: Cranial nerves grossly intact; no facial asymmetry, power and sensation grossly intact. Slight dysarthria. LYMPHATICS: No lymph nodes palpable in the axilla and neck INVESTIGATIONS, reviewed in the clinical context: Potassium 4.6 White count 9.8 hemoglobin 11.4 platelets 165 potassium 3.[address], cervical spine CT--negative for fracture. Old left posterior frontal lobe infarct with encephalomalacia Right shoulder x-ray-acute comminuted fracture of the right humerus with mild impaction Assessment: -Acute comminuted fracture of the right humerus with mild impaction secondary to fall. Not for surgical intervention. To be kept in a arm sling as orthopedics -GERD -Hyperlipidemia -Essential hypertension -Chronic dysarthria from an old stroke Plan: Orthopedics was consulted. Patient's blood pain medications. Home medications resumed. Care was discussed with the patient. 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, dizziness from 2016 History of Any Multi-Drug Resistant Organisms: None Reported Past Surgical History: Cholecystectomy, Hysterectomy, Tonsillectomy Additional Past Surgical History / Comment(s): CYST REMOVED LEFT HAND, DENNY.CATARACTS WITH LENS IMPLANTS., COLONOSCOPY Past Anesthesia/Blood Transfusion Reactions: No Reported Reaction Past Psychological History: No Psychological Hx Reported, Depression Additional Psychological History / Comment(s): Pt had depression when passed in 2015. Takes zoloft Smoking Status: Former smoker Past Alcohol Use History: None Reported Additional Past Alcohol Use History / Comment(s): smoked 40 years 1 ppd quit 2006 Past Drug Use History: None Reported - Past Family History Father Family Medical History: Cancer Additional Family Medical History / Comment(s): LUNG Mother Family Medical History: Cancer Additional Family Medical History / Comment(s): COLON Medications and Allergies Home Medications Medication Instructions Recorded Confirmed Type Cholecalciferol [Vitamin D3 (25 1,000 unit PO DAILY 05/31/18 06/20/20 History Mcg = 1000 Iu)] Sertraline HCl [Zoloft] 25 mg PO DAILY 05/31/18 06/20/20 History lisinopriL [Prinivil] 5 mg PO HS 05/31/18 06/20/20 History Atorvastatin [Lipitor] 40 mg PO HS 07/31/18 06/20/20 History Aspirin 81 mg PO DAILY 08/14/18 06/20/20 History Ascorbic Acid [Vitamin C] 500 mg PO DAILY 06/20/20 06/20/20 History Acetaminophen Tab [Tylenol] 650 mg PO Q6H PRN #30 tab 06/21/20 Rx Famotidine [Pepcid] 20 mg PO BID #60 tablet 06/21/20 Rx Naproxen [Naprosyn] 250 mg PO TID PRN #20 tab 06/21/20 Rx Allergies Allergy/AdvReac Type Severity Reaction Status Date / Time codeine AdvReac HEADACHE Verified 06/20/20 21:10 Physical Exam Vitals: Vital Signs Temp Pulse Pulse Resp BP BP Pulse Ox 06/21/20 08:00 98.2 F 67 18 121/67 97 06/21/20 02:12 98.4 F 51 L 16 141/76 90 L 06/20/20 22:40 99.0 F 63 107/59 94 L 06/20/20 20:06 70 18 159/71 95 06/20/20 18:18 97.4 F L 64 18 143/82 96 Intake and Output 06/20/20 06/21/20 06/21/20 22:59 06:59 14:59 Output Total 400 Balance -400 Output: Urine 400 Other: # Voids 1 1 Weight 81.647 kg Results CBC & Chem 7: 06/20/20 21:22 06/21/20 04:52 Labs: Abnormal Lab Results - Last 24 Hours (Table) 06/20/20 06/20/20 06/20/20 Range/Units 20:54 21:22 21:22 RBC 3.76 L (3.80-5.40) m/uL Hct 33.4 L (34.0-46.0) % Neutrophils # 8.7 H (1.3-7.7) k/uL Lymphocytes # 0.8 L (1.0-4.8) k/uL APTT 18.9 L (22.0-30.0) sec Potassium (3.5-5.1) mmol/L Chloride (98-107) mmol/L Carbon Dioxide (22-30) mmol/L Glucose (74-99) mg/dL Calcium (8.4-10.2) mg/dL Total Protein (6.3-8.2) g/dL Albumin (3.5-5.0) g/dL Ur Leukocyte Esterase Trace H (Negative) Urine Mucus Rare H (None) /hpf 06/20/20 Range/Units 21:22 RBC (3.80-5.40) m/uL Hct (34.0-46.0) % Neutrophils # (1.3-7.7) k/uL Lymphocytes # (1.0-4.8) k/uL APTT (22.0-30.0) sec Potassium 3.3 L (3.5-5.1) mmol/L Chloride 113 H (98-107) mmol/L Carbon Dioxide 21 L (22-30) mmol/L Glucose 117 H (74-99) mg/dL Calcium 6.8 L (8.4-10.2) mg/dL Total Protein 5.2 L (6.3-8.2) g/dL Albumin 2.8 L (3.5-5.0) g/dL Ur Leukocyte Esterase (Negative) Urine Mucus (None) /hpf Thrombosis Risk Factor Assmnt - Choose All That Apply Any of the Below Risk Factors Present?: Yes Each Factor Represents 1 point: Obesity (BMI >25) Other Risk Factors: Yes Each Risk Factor Represents 2 Points: Age 61-74 years Other congenital or acquired thrombophilia - If yes, enter type in comment: No Thrombosis Risk Factor Assessment Total Risk Factor Score: 3 Thrombosis Risk Factor Assessment Level: Moderate Risk
--- NOTE | 2020-06-21 23:45 | P.DS ---
Providers Date of admission: 06/20/20 20:56 Expected date of discharge: 06/21/20 Attending physician: Dereje Winter Consults: 06/20/20 20:54 Consult Physician Routine Consulting Provider: Jamal Fowler Consult Reason/Comments: proximal humerus fracture Do you want consulting provider notified?: Yes [facility]: Chief Complaint: Fracture right arm History of presenting complaint: This is a very pleasant 74-year-old patient of Dr. brooks. Chronic stable medical conditions include GERD, hyperlipidemia, hypertension, residual dysarthria from a stroke in 2016. Patient is with her daughter and Dr. Da Silva take the dog for a walk. She had them on the leash. The dog suddenly lurched and she fell falling on the right arm.. X-ray did confirm a right humerus fracture. Patient significant pain on presentation. Orthopedics consulted. Patient is to manage conservatively. No surgery. I spoke to patient and the patient's daughter Sujey. We'll avoid narcotics. Use NSAIDs and Tylenol for pain control. Follow orthopedic instructions. Consultation: Dr. Jamal Fowler from orthopedics Past medical history to include: GERD, hyperlipidemia, hypertension, stroke in 2016 with residual dysarthria, anxiety depression Social history: Smoke for 40 years 1 pack a day to 2006. Raynaud. Lives with her daughter Sujey. Physical examination: VITAL SIGNS: 98.2, 67, 18, 1 21 x 67, 97% room air GENERAL: BMI 32.9, laying in bed, awake. EYES: Pupils equal. Conjunctiva normal. HEENT: External appearance of nose and ears normal, oral cavity grossly normal. NECK: JVD not raised; masses not palpable. HEART: First and second heart sounds are normal; no edema. LUNGS: Respiratory rate normal; clear to auscultation. ABDOMEN: Soft, nontender, liver spleen not palpable, no masses palpable. EXTREMITIES: Right arm in a sling PSYCH: Alert and oriented x3; mood and affect normal. NEUROLOGICAL: Cranial nerves grossly intact; no facial asymmetry, power and sensation grossly intact. Slight dysarthria. INVESTIGATIONS, reviewed in the clinical context: Potassium 4.6 White count 9.8 hemoglobin 11.4 platelets 165 potassium 3.[address], cervical spine CT--negative for fracture. Old left posterior frontal lobe infarct with encephalomalacia Right shoulder x-ray-acute comminuted fracture of the right humerus with mild impaction Assessment: -Acute comminuted fracture of the right humerus with mild impaction secondary to fall. Not for surgical intervention. To be kept in a arm sling -Encephalomalacia, chronic -GERD -Hyperlipidemia -Essential hypertension -Chronic dysarthria from an old stroke -Obesity BMI 32.9 Disposition: Home Patient Condition at Discharge: Fair Plan - Discharge Summary New Discharge Prescriptions: New Naproxen [Naprosyn] 250 mg PO TID PRN #20 tab PRN Reason: Pain Famotidine [Pepcid] 20 mg PO BID #60 tablet Acetaminophen Tab [Tylenol] 650 mg PO Q6H PRN #30 tab PRN Reason: Pain Continue Sertraline HCl [Zoloft] 25 mg PO DAILY lisinopriL [Prinivil] 5 mg PO HS Cholecalciferol [Vitamin D3 (25 Mcg = 1000 Iu)] 1,000 unit PO DAILY Atorvastatin [Lipitor] 40 mg PO HS Aspirin 81 mg PO DAILY Ascorbic Acid [Vitamin C] 500 mg PO DAILY Discharge Medication List Cholecalciferol [Vitamin D3 (25 Mcg = 1000 Iu)] 1,000 unit PO DAILY 05/31/18 [History] Sertraline HCl [Zoloft] 25 mg PO DAILY 05/31/18 [History] lisinopriL [Prinivil] 5 mg PO HS 05/31/18 [History] Atorvastatin [Lipitor] 40 mg PO HS 07/31/18 [History] Aspirin 81 mg PO DAILY 08/14/18 [History] Ascorbic Acid [Vitamin C] 500 mg PO DAILY 06/20/20 [History] Acetaminophen Tab [Tylenol] 650 mg PO Q6H PRN #30 tab 06/21/20 [Rx] Famotidine [Pepcid] 20 mg PO BID #60 tablet 06/21/20 [Rx] Naproxen [Naprosyn] 250 mg PO TID PRN #20 tab 06/21/20 [Rx] Follow up Appointment(s)/Referral(s): Ruben Brooks MD [Primary Care Provider] - 1-2 days Jamal Fowler DO [Doctor of Osteopathic Medicine] - 06/29/20 9:20 am Patient Instructions/Handouts: Arm Fracture in Adults (GEN), How to Use a Sling (DC), R.I.C.E. Treatment (GEN) Activity/Diet/Wound Care/Special Instructions: Maintain arm sling to right upper extremity. Rest and ice the right upper extremity. Please follow up with [facility] and call with any questions or concerns, . Discharge Disposition: HOME SELF-CARE
== END 2020-06-21 16:20 | disposition home or self-care (01) ==
LOC: EC 18:16 → 6NMEDSUR 20:56
PROVIDERS: ADMIT Hospitalist; ATTEND Hospitalist
DX: S42.201A Unspecified fracture of upper end of right humerus, initial encounter for closed fracture (principal); E66.9 Obesity, unspecified; E78.5 Hyperlipidemia, unspecified; G93.89 Other specified disorders of brain; I10 Essential (primary) hypertension; I69.30 Unspecified sequelae of cerebral infarction; K21.9 Gastro-esophageal reflux disease without esophagitis; W19.XXXA Unspecified fall, initial encounter; Y93.K1 Activity, walking an animal; Z68.32 Body mass index [BMI] 32.0-32.9, adult; Z79.82 Long term (current) use of aspirin; Z79.899 Other long term (current) drug therapy; Z87.891 Personal history of nicotine dependence; Z90.710 Acquired absence of both cervix and uterus; Z96.1 Presence of intraocular lens
CPT/HCPCS: 96376 ×2; 96374; 99285; 80053; 84132; 85025; 85610; 85730; 81001; 72170; 73030; 71045; 72125; 70486; 70450; G0378 ×2; J1170 ×2

== ENCOUNTER 2020-09-09 09:46 | Inpatient (IN) | payer MEDICARE ==
[2020-09-09] MEDS ORDERED: ONDANSETRON 4 MG/2 ML VIAL IVP STA (10:20)
[2020-09-09] MEDS ORDERED: SODIUM CHLORIDE 0.9% 1,000 ML IV STA (10:20)
--- NOTE | 2020-09-09 10:31 | ED ---
Weakness HPI - General Chief complaint: Weakness Stated complaint: Covid+, Worsening symptoms Time Seen by Provider: 09/09/20 10:05 Source: patient, family Mode of arrival: wheelchair Limitations: no limitations - History of Present Illness Initial comments: Patient is a 74-year-old female with history of hypertension, CVA, presenting to the emergency Department with complaints of increasing weakness. Patient was diagnosed with Covid on Saturday, 4 days ago, her symptoms started 9 days ago. She did have some coughing and some mild shortness of breath but that has seemed to result. She is complaining of nausea, vomiting and increasing weakness. She states she has not been able to eat very much over the past week. She is also been having diarrhea. She denies any chest pain, no shortness of breath today. She denies any abdominal pain. He denies history of asthma or COPD. She has no further complaints at this time. Upon arrival to the ER, she is at 93% on room air, rest of vitals normal. - Related Data Home Medications Medication Instructions Recorded Confirmed Cholecalciferol [Vitamin D3 (25 1,000 unit PO DAILY 05/31/18 09/09/20 Mcg = 1000 Iu)] Sertraline HCl [Zoloft] 25 mg PO DAILY 05/31/18 09/09/20 lisinopriL [Prinivil] 5 mg PO DAILY 05/31/18 09/09/20 Atorvastatin [Lipitor] 40 mg PO HS 07/31/18 09/09/20 Aspirin 81 mg PO DAILY 08/14/18 09/09/20 Ascorbic Acid [Vitamin C] 500 mg PO DAILY 06/20/20 09/09/20 Previous Rx's Medication Instructions Recorded Acetaminophen Tab [Tylenol] 650 mg PO Q6H PRN #30 tab 06/21/20 Allergies Allergy/AdvReac Type Severity Reaction Status Date / Time codeine AdvReac HEADACHE Verified 09/09/20 11:02 Review of Systems ROS Statement: Those systems with pertinent positive or pertinent negative responses have been documented in the HPI. ROS Other: All systems not noted in ROS Statement are negative. 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, dizziness from 2016 History of Any Multi-Drug Resistant Organisms: None Reported Past Surgical History: Cholecystectomy, Hysterectomy, Tonsillectomy Additional Past Surgical History / Comment(s): CYST REMOVED LEFT HAND, DENNY.CATARACTS WITH LENS IMPLANTS., COLONOSCOPY Past Anesthesia/Blood Transfusion Reactions: No Reported Reaction Past Psychological History: No Psychological Hx Reported, Depression Smoking Status: Former smoker Past Alcohol Use History: None Reported Past Drug Use History: None Reported - Past Family History Father Family Medical History: Cancer Additional Family Medical History / Comment(s): LUNG Mother Family Medical History: Cancer Additional Family Medical History / Comment(s): COLON General Exam - General Exam Comments Initial Comments: GENERAL: Patient is well-developed and well-nourished. Patient is nontoxic and in no acute distress. HEAD: Atraumatic, normocephalic. EYES: Pupils equal round and reactive to light, extraocular movements intact, sclera anicteric, conjunctiva are normal. Eyelids were unremarkable. ENT: TMs normal, nares patent, oropharynx clear without exudates. Moist mucous membranes. NECK: Normal range of motion, supple without lymphadenopathy or JVD. LUNGS: Unlabored respirations. Breath sounds clear to auscultation bilaterally and equal. No wheezes rales or rhonchi. HEART: Regular rate and rhythm without murmurs, rubs or gallops. ABDOMEN: Soft, nontender, normoactive bowel sounds. No guarding, no rebound. No masses appreciated. : Deferred MUSCULOSKELETAL: Normal extremities with adequate strength and normal range of motion, no pitting or edema. No clubbing or cyanosis. NEUROLOGICAL: Patient is alert and oriented x 3. Motor and sensory are also intact. Cranial nerves II through XII grossly intact. Symmetrical smile. Normal speech, normal gait. PSYCH: Normal mood, normal affect. SKIN: Warm, Dry, normal turgor, no rashes or lesions noted. Limitations: no limitations Course Vital Signs 09/09/20 09/09/20 09/09/20 09:51 11:01 12:48 Temperature 98.6 F Pulse Rate 91 84 Respiratory 18 18 Rate Blood Pressure 125/64 150/92 O2 Sat by Pulse 93 L 89 L 86 L Oximetry EKG Findings - EKG Comments: EKG Findings:: Sinus rhythm with premature super ventricular complexes, ST and T-wave abnormalities, no signs of acute ischemia. Ventricular rate 87, ME interval 148, QTc 380. Similar to previous EKG on 08/14/2018. Medical Decision Making - Medical Decision Making She is a 74-year-old female here for increasing weakness over the past week. She was diagnosed with Covid on Saturday, 4 days ago, symptoms started 9 days ago. Nausea, vomiting, diarrhea, no appetite, increasing weakness. No chest pain or shortness of breath. Her vitals are stable. EKG shows no acute process. Labs show a normal white count, elevated liver enzymes and LDH as well as CRP consistent with clove infection. Troponin is normal. Chest x-ray shows patchy Covid infiltrates in the left lung. Upon reexamination of the patient, it was noted that she became hypoxic at 88% on room air. Patient was placed on 2 L and she has been satting at 96%. We did have another trial of room air and she quickly dropped to 86%. The patient will be admitted for Covid hypoxia, weakness. Patient is in agreement with this plan and care. Patient accepted by Dr. Winter. Case discussed with Dr. Everett. - Lab Data Result diagrams: 09/09/20 10:35 09/09/20 10:35 Lab Results 09/09/20 09/09/20 09/09/20 Range/Units 10:35 10:35 10:35 WBC 6.9 (3.8-10.6) k/uL RBC 4.70 (3.80-5.40) m/uL Hgb 13.6 (11.4-16.0) gm/dL Hct 40.4 (34.0-46.0) % MCV 86.0 (80.0-100.0) fL MCH 28.9 (25.0-35.0) pg MCHC 33.6 (31.0-37.0) g/dL RDW 13.6 (11.5-15.5) % Plt Count 257 (150-450) k/uL MPV 8.6 Neutrophils % 82 % Lymphocytes % 10 % Monocytes % 6 % Eosinophils % 0 % Basophils % 1 % Neutrophils # 5.6 (1.3-7.7) k/uL Lymphocytes # 0.7 L (1.0-4.8) k/uL Monocytes # 0.4 (0-1.0) k/uL Eosinophils # 0.0 (0-0.7) k/uL Basophils # 0.0 (0-0.2) k/uL PT 10.7 (9.0-12.0) sec INR 1.0 (<1.2) APTT 22.1 (22.0-30.0) sec Sodium 137 (137-145) mmol/L Potassium 3.7 (3.5-5.1) mmol/L Chloride 105 (98-107) mmol/L Carbon Dioxide 19 L (22-30) mmol/L Anion Gap 13 mmol/L BUN 28 H (7-17) mg/dL Creatinine 0.77 (0.52-1.04) mg/dL Est GFR (CKD-EPI)AfAm 88 (>60 ml/min/1.73 sqM) Est GFR (CKD-EPI)NonAf 76 (>60 ml/min/1.73 sqM) Glucose 137 H (74-99) mg/dL Plasma Lactic Acid Cirilo (0.7-2.0) mmol/L Calcium 9.2 (8.4-10.2) mg/dL Magnesium 2.0 (1.6-2.3) mg/dL Total Bilirubin 0.9 (0.2-1.3) mg/dL AST 117 H (14-36) U/L ALT 79 H (4-34) U/L Alkaline Phosphatase 88 (38-126) U/L Lactate Dehydrogenase 1314 H (313-618) U/L Troponin I (0.000-0.034) ng/mL C-Reactive Protein 37.9 H (<10.0) mg/L Total Protein 6.7 (6.3-8.2) g/dL Albumin 3.6 (3.5-5.0) g/dL 09/09/20 09/09/20 Range/Units 10:35 10:35 WBC (3.8-10.6) k/uL RBC (3.80-5.40) m/uL Hgb (11.4-16.0) gm/dL Hct (34.0-46.0) % MCV (80.0-100.0) fL MCH (25.0-35.0) pg MCHC (31.0-37.0) g/dL RDW (11.5-15.5) % Plt Count (150-450) k/uL MPV Neutrophils % % Lymphocytes % % Monocytes % % Eosinophils % % Basophils % % Neutrophils # (1.3-7.7) k/uL Lymphocytes # (1.0-4.8) k/uL Monocytes # (0-1.0) k/uL Eosinophils # (0-0.7) k/uL Basophils # (0-0.2) k/uL PT (9.0-12.0) sec INR (<1.2) APTT (22.0-30.0) sec Sodium (137-145) mmol/L Potassium (3.5-5.1) mmol/L Chloride (98-107) mmol/L Carbon Dioxide (22-30) mmol/L Anion Gap mmol/L BUN (7-17) mg/dL Creatinine (0.52-1.04) mg/dL Est GFR (CKD-EPI)AfAm (>60 ml/min/1.73 sqM) Est GFR (CKD-EPI)NonAf (>60 ml/min/1.73 sqM) Glucose (74-99) mg/dL Plasma Lactic Acid Cirilo 1.8 (0.7-2.0) mmol/L Calcium (8.4-10.2) mg/dL Magnesium (1.6-2.3) mg/dL Total Bilirubin (0.2-1.3) mg/dL AST (14-36) U/L ALT (4-34) U/L Alkaline Phosphatase (38-126) U/L Lactate Dehydrogenase (313-618) U/L Troponin I <0.012 (0.000-0.034) ng/mL C-Reactive Protein (<10.0) mg/L Total Protein (6.3-8.2) g/dL Albumin (3.5-5.0) g/dL Disposition Clinical Impression: Pneumonia due to COVID-19 virus, Hypoxia, Weakness, Nausea & vomiting Disposition: ADMITTED IP TO THIS [facility] Condition: Stable Referrals: Ruben Brooks MD [Primary Care Provider] - 1-2 days Decision Date: 09/09/20 Decision Time: 13:03
[2020-09-09 11:07] LABS: Albumin 3.6 g/dL (3.5-5.0); C Reactive Protein 37.9 mg/L (<10.0); Calcium 9.2 mg/dL (8.4-10.2); Total Bilirubin 0.9 mg/dL (0.2-1.3); Total Protein 6.7 g/dL (6.3-8.2)
[2020-09-09 11:09] LABS: Potassium 3.7 mmol/L (3.5-5.1)
[2020-09-09 11:17] LABS: Partial Thromboplastin Time 22.1 sec (22.0-30.0); Prothrombin Time 10.7 sec (9.0-12.0)
[2020-09-09 11:26] LABS: Basophils % (A) 1 %; Eosinophils % (A) 0 %; HCT 40.4 % (34.0-46.0); HGB 13.6 gm/dL (11.4-16.0); Lymphocytes # (A) 0.7 k/uL (1.0-4.8); Lymphocytes % (A) 10 %; MCH 28.9 pg (25.0-35.0); MCHC 33.6 g/dL (31.0-37.0); Mean Platelet Volume 8.6; Monocytes # (A) 0.4 k/uL (0-1.0); Monocytes % (A) 6 %; Neutrophils # (A) 5.6 k/uL (1.3-7.7); Neutrophils % (A) 82 %; Platelet Count 257 k/uL (150-450); RDW 13.6 % (11.5-15.5); WBC 6.9 k/uL (3.8-10.6)
--- NOTE | 2020-09-09 11:28 | XR ---
EXAMINATION TYPE: XR chest 2V DATE OF EXAM: 09/09/2020 COMPARISON: None HISTORY: 74-year-old female with weakness TECHNIQUE: AP and lateral views FINDINGS: Heart normal size. Atherosclerotic arch calcifications. Patchy opacities throughout the periphery of the left lung. No pleural effusion. Chronic fracture deformity proximal right humerus. IMPRESSION: Patchy COVID infiltrates in the periphery of the left lung.
[2020-09-09] MEDS ORDERED: ONDANSETRON 4 MG/2 ML VIAL IVP PRN (13:00)
[2020-09-09] MEDS ORDERED: NALOXONE 0.4 MG/ML 1 ML VIAL IV PRN (13:00)
[2020-09-09] MEDS: ACETAMINOPHEN TAB 325 MG TAB PO PRN (15:53)
[2020-09-09] MEDS: SODIUM CHLORIDE 0.9% 1,000 ML IV SCH (15:54)
[2020-09-09 16:19] LABS: Appearance,Urine Clear (Clear); Bilirubin,Urine Negative (Negative); Blood,Urine Negative (Negative); Color,Urine Yellow; Glucose,Urine (UA) Negative (Negative); Hyaline Casts,Urine 1 /lpf (0-2); Ketones,Urine Negative (Negative); Leukocyte Esterase,Urine Moderate (Negative); Mucus,Urine Rare /hpf; Nitrite,Urine Negative (Negative); Protein,Urine Trace (Negative); Specific Gravity,Urine 1.012 (1.001-1.035); Squamous Epithelial Cell,Urine <1 /hpf (0-4); Urobilinogen,Urine <2.0 mg/dL (<2.0); WBC,Urine 8 /hpf (0-5)
[2020-09-09] MEDS: dexAMETHasone 2 MG TAB PO SCH (17:49)
[2020-09-09] MEDS: ENOXAPARIN 40 MG/0.4 ML SYRINGE SQ SCH (17:49)
--- NOTE | 2020-09-09 18:32 | P.CNPUL ---
History of Present Illness Consult date: 09/09/20 Reason for consult: dyspnea History of present illness: 34-year-old here patient presented to the emergency with increased weakness. She was diagnosed over done 09/05/2020 and her symptoms started approximately 9 days ago. She was having increased cough and shortness of breath in addition to generalized weakness and some nausea. Her oral intake has also dropped and the patient was having some limited diarrhea. No chest pain. Upon arrival to ED, pulse ox 93% on room air and the rest of the vitals were stable and the patient was afebrile. The patient had a white cell count of 6.9 with lymphopenia and to coagulation profile was normal and the blood work showed an LDH level of 1314, CRP of 37.9, serum bicarb of 19 with an anion gap of 13 and a BUN of 28 with a creatinine of 0.7. Her troponin was less than 0.01. D-dimer has not been checked. The patient's chest x-ray is showing peripheral infiltrates more so on the left lung. Comorbid conditions include hypertension and hyperlipidemia and previous history of CVA. Review of Systems 14 point review of system was done and the positive findings are all mentioned above in history of present illness Constitutional: Reports fatigue, Reports weakness Eyes: denies as per HPI, denies blurred vision, denies bulging eye, denies decreased vision, denies diplopia, denies discharge, denies dry eye, denies irritation, denies itching, denies pain, denies photophobia, denies loss of peripheral vision, denies loss of vision, denies tunnel vision/blind spots Ears: deny: decreased hearing, ear discharge, earache, tinnitus Ears, nose, mouth and throat: Reports as per HPI Breasts: absent: as per HPI, change in shape, gynecomastia, masses, nipple discharge, pain, skin changes, swelling Cardiovascular: Reports dyspnea on exertion Respiratory: Reports cough, Reports dyspnea Gastrointestinal: Reports as per HPI, Reports loss of appetite Genitourinary: Reports as per HPI Menstruation: Reports as per HPI Musculoskeletal: Reports as per HPI, Reports muscle weakness Musculoskeletal: absent: ankle pain, ankle stiffness, ankle swelling, as per HPI, elbow pain, elbow stiffness, elbow swelling, foot pain, foot stiffness, foot swelling, hand pain, hand stiffness, hand swelling, hip pain, hip stiffness, hip swelling, knee pain, knee stiffness, knee swelling, shoulder pain, shoulder stiffness, shoulder swelling, wrist pain, wrist stiffness, wrist swelling Integumentary: Reports as per HPI Neurological: Reports as per HPI (speech difficulties post CVA) Endocrine: Reports as per HPI, Reports fatigue Hematologic/Lymphatic: Reports as per HPI Allergic/Immunologic: Reports as per HPI 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, dizziness from 2016 History of Any Multi-Drug Resistant Organisms: None Reported Past Surgical History: Cholecystectomy, Hysterectomy, Tonsillectomy Additional Past Surgical History / Comment(s): CYST REMOVED LEFT HAND, DENNY.CATAR ACTS WITH LENS IMPLANTS., COLONOSCOPY Past Anesthesia/Blood Transfusion Reactions: No Reported Reaction Past Psychological History: No Psychological Hx Reported, Depression Smoking Status: Former smoker Past Alcohol Use History: None Reported Past Drug Use History: None Reported - Past Family History Father Family Medical History: Cancer Additional Family Medical History / Comment(s): LUNG Mother Family Medical History: Cancer Additional Family Medical History / Comment(s): COLON Medications and Allergies Home Medications Medication Instructions Recorded Confirmed Type Cholecalciferol [Vitamin D3 (25 1,000 unit PO DAILY 05/31/18 09/09/20 History Mcg = 1000 Iu)] Sertraline HCl [Zoloft] 25 mg PO DAILY 05/31/18 09/09/20 History lisinopriL [Prinivil] 5 mg PO DAILY 05/31/18 09/09/20 History Atorvastatin [Lipitor] 40 mg PO HS 07/31/18 09/09/20 History Aspirin 81 mg PO DAILY 08/14/18 09/09/20 History Ascorbic Acid [Vitamin C] 500 mg PO DAILY 06/20/20 09/09/20 History Acetaminophen Tab [Tylenol] 650 mg PO Q6H PRN #30 tab 06/21/20 09/09/20 Rx Allergies Allergy/AdvReac Type Severity Reaction Status Date / Time codeine AdvReac HEADACHE Verified 09/09/20 11:02 Physical Exam Vitals: Vital Signs Temp Pulse Resp BP Pulse Ox 09/09/20 13:46 82 16 130/60 95 09/09/20 12:48 86 L 09/09/20 11:01 84 18 150/92 89 L 09/09/20 09:51 98.6 F 91 18 125/64 93 L Intake and Output 09/09/20 09/09/20 09/09/20 06:59 14:59 22:59 Other: Weight 81.647 kg Gen. appearance, comfortable, BMI of 32.9, breathing is unlabored and the patient does not look toxic Head exam was generally normal. There was no scleral icterus or corneal arcus. Mucous membranes were moist. Neck was supple and without jugular venous distension, thyromegaly, or carotid bruits. Carotids were easily palpable bilaterally. There was no adenopathy. Lungs sounds are diminished and the patient has some limited crackles in lung bases bilaterally Cardiac exam revealed the PMI to be normally situated and sized. The rhythm was regular and no extrasystoles were noted during several minutes of auscultation. The first and second heart sounds were normal and physiologic splitting of the second heart sound was noted. There were no murmurs, rubs, clicks, or gallops. Abdominal exam revealed normal bowel sounds. The abdomen was soft, non-tender, and without masses, organomegaly, or appreciable enlargement of the abdominal aorta. Examination of the extremities revealed easily palpable radial, femoral and pedal pulses. There was no cyanosis, clubbing or edema. Examination of the skin revealed no evidence of significant rashes, suspicious appearing nevi or other concerning lesions. Neurologically, the patient is awake and alert and the patient does not have any focal neurological deficit. Cranial nerves are essentially intact. Results - Laboratory Findings CBC and BMP: 09/09/20 10:35 09/09/20 10:35 PT/INR, D-dimer PT 10.7 sec (9.0-12.0) 09/09/20 10:35 INR 1.0 (<1.2) 09/09/20 10:35 Abnormal lab findings: Abnormal Labs 09/09/20 09/09/20 09/09/20 10:35 10:35 10:35 Lymphocytes # 0.7 L Carbon Dioxide 19 L BUN 28 H Glucose 137 H AST 117 H ALT 79 H Lactate Dehydrogenase 1314 H C-Reactive Protein 37.9 H Urine Protein Trace H Ur Leukocyte Esterase Moderate H Urine WBC 8 H Urine Mucus Rare H - Diagnostic Findings Chest x-ray: image reviewed Assessment and Plan Plan: 1 acute bilateral COVID-19 related pneumonia in addition to constitutional sym ptoms related to COVID-19 infection. 2 acute hypoxic respiratory failure currently on oxygen at 2 L to maintain a saturation above 90% 3 elevated inflammatory markers including LDH and CRP secondary to above 4 lymphopenia secondary to above 5 CVA, history of 6 hypertension 7 hyperlipidemia Plan Treat this patient with oxygen at 2 L per minute nasal cannula and titrate the flow to maintain saturation above 90% Decadron 6 mg IV every 24 hours Lovenox 40 mg subcu for DVT prophylaxis Vitamin C, D, zinc Check a d-dimer level Consider Remdesivir knowing that this may be of limited efficacy as her symptoms onset being at least 9 days prior to this current hospitalization We'll continue to follow. Continue with supportive treatment. IV fluids. Resume all medications.
[2020-09-09] MEDS ORDERED: REMDESIVIR 200 MG in SODIUM CHLORIDE 0.9% 250 ML IVPB ONE (19:00)
[2020-09-09] MEDS: ATORVASTATIN 40 MG TAB PO SCH (20:36)
[2020-09-10] MEDS: SODIUM CHLORIDE 0.9% 1,000 ML IV SCH (05:57)
[2020-09-10] MEDS: ASCORBIC ACID 500 MG TAB PO SCH (07:35)
[2020-09-10] MEDS: SERTRALINE 25 MG TAB PO SCH (07:35)
[2020-09-10] MEDS: dexAMETHasone 2 MG TAB PO SCH (07:35)
[2020-09-10] MEDS: lisinopriL 5 MG TAB PO SCH (07:35)
[2020-09-10] MEDS: ENOXAPARIN 40 MG/0.4 ML SYRINGE SQ SCH (07:35)
[2020-09-10] MEDS: CHOLECALCIFEROL 25 MCG (1000 IU) TABLET PO SCH (07:36)
[2020-09-10] MEDS: ASPIRIN 81 MG PO SCH (07:36)
--- NOTE | 2020-09-10 08:32 | XR ---
EXAMINATION TYPE: XR chest 1V portable DATE OF EXAM: 09/10/2020 CLINICAL HISTORY: Difficulty breathing and covid progress study. TECHNIQUE: Single AP portable upright view of the chest is obtained. COMPARISON: Chest x-ray from one day earlier and older studies. FINDINGS: Background chronic parenchymal changes with worsening peripheral left lung opacity slightl y elevated left hemidiaphragm redemonstrated. Developing right midlung focal opacity. Cardiac silhoue tte size stable and upper limits of normal with applesauce chronic change aortic knob. Chronic displa poppy fracture deformity right humeral head redemonstrated. IMPRESSION: Chronic changes with worsening peripheral left lung opacities and developing focal right midlung opacity consistent with covid-19 infection progression.
[2020-09-10] MEDS: ACETAMINOPHEN TAB 325 MG TAB PO PRN ×2 (08:58→15:38)
--- NOTE | 2020-09-10 09:33 | P.PN ---
Subjective Progress Note Date: 09/10/20 74-year-old here patient presented to the emergency with increased weakness. She was diagnosed over done 09/05/2020 and her symptoms started approximately 9 days ago. She was having increased cough and shortness of breath in addition to generalized weakness and some nausea. Her oral intake has also dropped and the patient was having some limited diarrhea. No chest pain. Upon arrival to ED, pulse ox 93% on room air and the rest of the vitals were stable and the patient was afebrile. The patient had a white cell count of 6.9 with lymphopenia and to coagulation profile was normal and the blood work showed an LDH level of 1314, CRP of 37.9, serum bicarb of 19 with an anion gap of 13 and a BUN of 28 with a creatinine of 0.7. Her troponin was less than 0.01. D-dimer has not been checked. The patient's chest x-ray is showing peripheral infiltrates more so on the left lung. Comorbid conditions include hypertension and hyperlipidemia and previous history of CVA. 09/10/2020 the patient remains on 2 L of oxygen by nasal cannula. Her pulse ox is 93%. No new complaints otherwise for now. She is on Decadron. She is also on ROM. Chest x-ray was repeated today shows some worsening in the peripheral left lung opacity and developing focal right midlung opacity consistent with community related pneumonia. D-dimer today's at 1.68. The rest of the inflammatory markers are still pending for now. Objective - Vital Signs Vital signs: Vital Signs Temp 97 F L 09/10/20 08:00 Pulse 71 09/10/20 08:00 Resp 17 09/10/20 08:00 BP 119/91 09/10/20 08:00 Pulse Ox 91 L 09/10/20 08:00 Intake & Output 09/09/20 09/10/20 09/10/20 18:59 06:59 18:59 Intake Total 750 Balance 750 Weight 81.647 kg Intake: Intake, IV Titration 750 Amount Remdesivir 200 mg In 750 Sodium Chloride 0.9% 250 ml @ 250 mls/hr IVPB ONCE ONE Rx#:[id number] - Exam Gen. appearance, comfortable, BMI of 32.9, breathing is unlabored and the patient does not look toxic Head exam was generally normal. There was no scleral icterus or corneal arcus. Mucous membranes were moist. Neck was supple and without jugular venous distension, thyromegaly, or carotid bruits. Carotids were easily palpable bilaterally. There was no adenopathy. Lungs sounds are diminished and the patient has some limited crackles in lung bases bilaterally Cardiac exam revealed the PMI to be normally situated and sized. The rhythm was regular and no extrasystoles were noted during several minutes of auscultation. The first and second heart sounds were normal and physiologic splitting of the second heart sound was noted. There were no murmurs, rubs, clicks, or gallops. Abdominal exam revealed normal bowel sounds. The abdomen was soft, non-tender, and without masses, organomegaly, or appreciable enlargement of the abdominal aorta. Examination of the extremities revealed easily palpable radial, femoral and pedal pulses. There was no cyanosis, clubbing or edema. Examination of the skin revealed no evidence of significant rashes, suspicious appearing nevi or other concerning lesions. Neurologically, the patient is awake and alert and the patient does not have any focal neurological deficit. Cranial nerves are essentially intact. - Labs CBC & Chem 7: 09/09/20 10:35 09/09/20 10:35 Labs: Abnormal Lab Results - Last 24 Hours (Table) 09/09/20 09/09/20 09/09/20 Range/Units 10:35 10:35 10:35 Lymphocytes # 0.7 L (1.0-4.8) k/uL D-Dimer (<0.60) mg/L FEU Carbon Dioxide 19 L (22-30) mmol/L BUN 28 H (7-17) mg/dL Glucose 137 H (74-99) mg/dL AST 117 H (14-36) U/L ALT 79 H (4-34) U/L Lactate Dehydrogenase 1314 H (313-618) U/L C-Reactive Protein 37.9 H (<10.0) mg/L Urine Protein Trace H (Negative) Ur Leukocyte Esterase Moderate H (Negative) Urine WBC 8 H (0-5) /hpf Urine Mucus Rare H (None) /hpf 09/09/20 Range/Units 17:34 Lymphocytes # (1.0-4.8) k/uL D-Dimer 1.68 H (<0.60) mg/L FEU Carbon Dioxide (22-30) mmol/L BUN (7-17) mg/dL Glucose (74-99) mg/dL AST (14-36) U/L ALT (4-34) U/L Lactate Dehydrogenase (313-618) U/L C-Reactive Protein (<10.0) mg/L Urine Protein (Negative) Ur Leukocyte Esterase (Negative) Urine WBC (0-5) /hpf Urine Mucus (None) /hpf Assessment and Plan Plan: 1 acute bilateral COVID-19 related pneumonia in addition to constitutional symptoms related to COVID-19 infection. Clinically stable on 2 L of oxygen and there may be some interval worsening of the chest x-ray findings based on the radiology report. Based on my review, findings are stable. 2 acute hypoxic respiratory failure currently on oxygen at 2 L to maintain a saturation above 90% 3 elevated inflammatory markers including LDH and CRP secondary to above 4 lymphopenia secondary to above 5 CVA, history of 6 hypertension 7 hyperlipidemia Plan Treat this patient with oxygen at 2 L per minute nasal cannula and titrate the flow to maintain saturation above 90% Decadron 6 mg IV every 24 hours Lovenox 40 mg subcu for DVT prophylaxis Vitamin C, D, zinc Check a d-dimer level Remdesivir day #2 We'll continue to follow. Continue with supportive treatment. IV fluids. Resume all medications.
[2020-09-10 10:22] LABS: ALT 51 U/L (4-34); AST 60 U/L (14-36); African American GFR (CKD) >90 (>60 ml/min/1.73 sqM); Albumin 2.8 g/dL (3.5-5.0); Alkaline Phosphatase 83 U/L (38-126); Anion Gap 10 mmol/L; Blood Urea Nitrogen 25 mg/dL (7-17); C Reactive Protein 3.7 mg/dL (<1.0); Calcium 8.7 mg/dL (8.4-10.2); Carbon Dioxide 20 mmol/L (22-30); Chloride 110 mmol/L (98-107); Glucose 195 mg/dL (74-99); LDH 802 U/L (313-618); Non-African American GFR(CKD) >90 (>60 ml/min/1.73 sqM); Potassium 3.7 mmol/L (3.5-5.1); Sodium 140 mmol/L (137-145); Total Bilirubin 0.5 mg/dL (0.2-1.3); Total Protein 5.5 g/dL (6.3-8.2)
[2020-09-10] MEDS ORDERED: REMDESIVIR 100 MG in SODIUM CHLORIDE 0.9% 250 ML IVPB SCH (19:00)
[2020-09-10] MEDS: ATORVASTATIN 40 MG TAB PO SCH (20:03)
--- NOTE | 2020-09-10 20:09 | P.HPIM ---
History of Present Illness H&P Date: 09/10/20 Chief Complaint: Short of breath History of presenting complaint: This is a very pleasant 74-year-old patient of Dr. barrios. Chronic stable medical conditions include GERD, hyperlipidemia, hypertension, residual dysarthria from a stroke in 2016. Patient presents now with about 10 days symptoms of shortness of breath cough body aches some loose stools.. Denies any obvious fever and chills. Tired rundown. Decreased appetite. Patient was diagnosed with COVID 19 on September 05. Patient's pulse ox in the ER was down to 86%. Placed on nasal cannula. Review of systems: GEN.: Tired EYES: None HEENT: None NECK: None RESPIRATORY: As above CARDIOVASCULAR: None GASTROINTESTINAL: As above GENITOURINARY: None MUSCULOSKELETAL: Muscle aches LYMPHATICS: None HEMATOLOGICAL: None PSYCHIATRY: None NEUROLOGICAL: Slow speech] Past medical history to include: GERD, hyperlipidemia, hypertension, stroke in 2016 with residual dysarthria, anxiety depression Social history: Smoke for 40 years 1 pack a day they'll 2006. Lives with her daughter Sujey. Physical examination: VITAL SIGNS: 98.6, 94, 18, 150/92, 86% on room air upon presentation GENERAL: BMI 32.9, laying in bed, tired EYES: Pupils equal. Conjunctiva normal. HEENT: External appearance of nose and ears normal, oral cavity grossly normal. NECK: JVD not raised; masses not palpable. HEART: First and second heart sounds are normal; no edema. LUNGS: Respiratory rate increased, decreased breath sounds on crackles. ABDOMEN: Soft, nontender, liver spleen not palpable, no masses palpable. PSYCH: Alert and oriented x3; mood and affect normal. NEUROLOGICAL: Cranial nerves grossly intact; no facial asymmetry, power and sensation grossly intact. Slight dysarthria. LYMPHATICS: No lymph nodes palpable in the axilla and neck INVESTIGATIONS, reviewed in the clinical context: WBC 6.9 hemoglobin 13.6 platelets 257 d-dimer 1.84 potassium 3.7 creatinine 0.57 CRP 37.9 and repeat 3.7 LDH 131 for repeat 802 UA positive for leukoesterase, WBC EKG tracing personally reviewed by me-normal sinus rhythm with ST segment changes Chest x-ray film personally reviewed by me-infiltrates Assessment and plan: -Bilateral COVID 19 pneumonia. Symptoms have been present for 10 days initially diagnosed on 09/05/2020 Patient on dexamethasone, Lovenox, started on Remdesivir by pulmonary -Acute hypoxic respiratory failure from COVID 19 pneumonia Nasal cannula on 5 L -Encephalomalacia, chronic -GERD Pepcid -Hyperlipidemia Lipitor -Essential hypertension Prinivil -Chronic dysarthria from an old stroke -Obesity BMI 32.9 Weight loss measures and follow with PCP Care was discussed with the patient. Sitting up in a chair as tolerated. Incentive spirometry. Follow with pulmonary Given the complexity and severity of patient's condition expect the patient to be in the hospital at least for 2 overnights 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, dizziness from 2016 History of Any Multi-Drug Resistant Organisms: None Reported Past Surgical History: Cholecystectomy, Hysterectomy, Tonsillectomy Additional Past Surgical History / Comment(s): CYST REMOVED LEFT HAND, DENNY.CATARACTS WITH LENS IMPLANTS., COLONOSCOPY Past Anesthesia/Blood Transfusion Reactions: No Reported Reaction Past Psychological History: No Psychological Hx Reported, Depression Smoking Status: Former smoker Past Alcohol Use History: None Reported Past Drug Use History: None Reported - Past Family History Father Family Medical History: Cancer Additional Family Medical History / Comment(s): LUNG Mother Family Medical History: Cancer Additional Family Medical History / Comment(s): COLON Medications and Allergies Home Medications Medication Instructions Recorded Confirmed Type Cholecalciferol [Vitamin D3 (25 1,000 unit PO DAILY 05/31/18 09/09/20 History Mcg = 1000 Iu)] Sertraline HCl [Zoloft] 25 mg PO DAILY 05/31/18 09/09/20 History lisinopriL [Prinivil] 5 mg PO DAILY 05/31/18 09/09/20 History Atorvastatin [Lipitor] 40 mg PO HS 07/31/18 09/09/20 History Aspirin 81 mg PO DAILY 08/14/18 09/09/20 History Ascorbic Acid [Vitamin C] 500 mg PO DAILY 06/20/20 09/09/20 History Acetaminophen Tab [Tylenol] 650 mg PO Q6H PRN #30 tab 06/21/20 09/09/20 Rx Allergies Allergy/AdvReac Type Severity Reaction Status Date / Time codeine AdvReac HEADACHE Verified 09/09/20 11:02 Physical Exam Vitals: Vital Signs Temp Pulse Pulse Resp BP BP BP 09/10/20 08:00 97 F L 71 17 119/91 09/10/20 04:46 98.2 F 66 12 113/64 09/09/20 23:42 97.3 F L 66 20 144/65 09/09/20 20:00 98.7 F 72 28 H 126/59 09/09/20 18:32 97.6 F 72 16 118/83 09/09/20 17:51 98.9 F 81 18 132/58 09/09/20 17:50 98.9 F 81 18 132/58 09/09/20 13:46 82 16 130/60 09/09/20 12:48 09/09/20 11:01 84 18 150/92 Pulse Ox 09/10/20 08:00 91 L 09/10/20 04:46 93 L 09/09/20 23:42 94 L 09/09/20 20:00 93 L 09/09/20 18:32 97 09/09/20 17:51 95 09/09/20 17:50 95 09/09/20 13:46 95 09/09/20 12:48 86 L 09/09/20 11:01 89 L Intake and Output 09/09/20 09/10/20 09/10/20 22:59 06:59 14:59 Intake Total 750 Balance 750 Intake: Intake, IV Titration 750 Amount Remdesivir 200 mg In 750 Sodium Chloride 0.9% 250 ml @ 250 mls/hr IVPB ONCE ONE Rx#:[id number] Other: Weight 81.647 kg Results CBC & Chem 7: 09/09/20 10:35 09/10/20 09:48 Labs: Abnormal Lab Results - Last 24 Hours (Table) 09/09/20 09/09/20 09/09/20 Range/Units 10:35 10:35 10:35 Lymphocytes # 0.7 L (1.0-4.8) k/uL D-Dimer (<0.60) mg/L FEU Carbon Dioxide 19 L (22-30) mmol/L BUN 28 H (7-17) mg/dL Glucose 137 H (74-99) mg/dL AST 117 H (14-36) U/L ALT 79 H (4-34) U/L Lactate Dehydrogenase 1314 H (313-618) U/L C-Reactive Protein 37.9 H (<10.0) mg/L Urine Protein Trace H (Negative) Ur Leukocyte Esterase Moderate H (Negative) Urine WBC 8 H (0-5) /hpf Urine Mucus Rare H (None) /hpf 09/09/20 Range/Units 17:34 Lymphocytes # (1.0-4.8) k/uL D-Dimer 1.68 H (<0.60) mg/L FEU Carbon Dioxide (22-30) mmol/L BUN (7-17) mg/dL Glucose (74-99) mg/dL AST (14-36) U/L ALT (4-34) U/L Lactate Dehydrogenase (313-618) U/L C-Reactive Protein (<10.0) mg/L Urine Protein (Negative) Ur Leukocyte Esterase (Negative) Urine WBC (0-5) /hpf Urine Mucus (None) /hpf Thrombosis Risk Factor Assmnt - Choose All That Apply Any of the Below Risk Factors Present?: No Other Risk Factors: Yes Each Risk Factor Represents 2 Points: Age 61-74 years Thrombosis Risk Factor Assessment Total Risk Factor Score: 2 Thrombosis Risk Factor Assessment Level: Low Risk
[2020-09-10] MEDS: FAMOTIDINE 20 MG TAB PO SCH (20:11)
[2020-09-11] MEDS: CHOLECALCIFEROL 25 MCG (1000 IU) TABLET PO SCH (07:15)
[2020-09-11] MEDS: ASPIRIN 81 MG PO SCH (07:15)
[2020-09-11] MEDS: SERTRALINE 25 MG TAB PO SCH (07:15)
[2020-09-11] MEDS: lisinopriL 5 MG TAB PO SCH (07:15)
[2020-09-11] MEDS: ENOXAPARIN 40 MG/0.4 ML SYRINGE SQ SCH (07:16)
[2020-09-11] MEDS: ASCORBIC ACID 500 MG TAB PO SCH (07:16)
[2020-09-11] MEDS: FAMOTIDINE 20 MG TAB PO SCH (07:16)
[2020-09-11] MEDS: dexAMETHasone 2 MG TAB PO SCH (07:16)
[2020-09-11 09:26] LABS: ALT 47 U/L (4-34); AST 46 U/L (14-36); African American GFR (CKD) >90 (>60 ml/min/1.73 sqM); Alkaline Phosphatase 89 U/L (38-126); Anion Gap 10 mmol/L; Blood Urea Nitrogen 24 mg/dL (7-17); Calcium 8.9 mg/dL (8.4-10.2); Carbon Dioxide 21 mmol/L (22-30); Chloride 110 mmol/L (98-107); Glucose 110 mg/dL (74-99); LDH 839 U/L (313-618); Non-African American GFR(CKD) >90 (>60 ml/min/1.73 sqM); Potassium 3.9 mmol/L (3.5-5.1); Sodium 141 mmol/L (137-145); Total Bilirubin 0.4 mg/dL (0.2-1.3); Total Protein 5.6 g/dL (6.3-8.2)
[2020-09-11 09:29] VITALS: RESP 18
--- NOTE | 2020-09-11 09:41 | P.PN ---
Subjective Progress Note Date: 09/11/20 74-year-old here patient presented to the emergency with increased weakness. She was diagnosed over done 09/05/2020 and her symptoms started approximately 9 days ago. She was having increased cough and shortness of breath in addition to generalized weakness and some nausea. Her oral intake has also dropped and the patient was having some limited diarrhea. No chest pain. Upon arrival to ED, pulse ox 93% on room air and the rest of the vitals were stable and the patient was afebrile. The patient had a white cell count of 6.9 with lymphopenia and to coagulation profile was normal and the blood work showed an LDH level of 1314, CRP of 37.9, serum bicarb of 19 with an anion gap of 13 and a BUN of 28 with a creatinine of 0.7. Her troponin was less than 0.01. D-dimer has not been checked. The patient's chest x-ray is showing peripheral infiltrates more so on the left lung. Comorbid conditions include hypertension and hyperlipidemia and previous history of CVA. 09/10/2020 the patient remains on 2 L of oxygen by nasal cannula. Her pulse ox is 93%. No new complaints otherwise for now. She is on Decadron. She is also on ROM. Chest x-ray was repeated today shows some worsening in the peripheral left lung opacity and developing focal right midlung opacity consistent with community related pneumonia. D-dimer today's at 1.68. The rest of the inflammatory markers are still pending for now. 09/11/2020, the patient is on room air oxygen. Feeling great. D-dimer is down to 0.8. LDH is down to 839. CRP is down to 2. Resting comfortably in bed. She is afebrile. She is on day #3 of Remdesivir and Decadron treatment. Objective - Vital Signs Vital signs: Vital Signs Temp 97.8 F 09/11/20 08:00 Pulse 91 09/11/20 08:00 Resp 18 09/11/20 08:00 BP 131/61 09/11/20 08:00 Pulse Ox 91 L 09/11/20 08:00 Intake & Output 09/10/20 09/11/20 09/11/20 18:59 06:59 18:59 Intake Total 2004 240 Balance 2004 240 Intake: Intake, IV Titration 425 Amount Sodium Chloride 0.9% 1, 425 000 ml @ 75 mls/hr IV . [id number] [facility] Rx#:[id number] Oral 1580 240 Other: # Voids 4 2 - Exam Gen. appearance, comfortable, BMI of 32.9, breathing is unlabored and the patient does not look toxic Head exam was generally normal. There was no scleral icterus or corneal arcus. Mucous membranes were moist. Neck was supple and without jugular venous distension, thyromegaly, or carotid bruits. Carotids were easily palpable bilaterally. There was no adenopathy. Lungs sounds are diminished and the patient has some limited crackles in lung bases bilaterally Cardiac exam revealed the PMI to be normally situated and sized. The rhythm was regular and no extrasystoles were noted during several minutes of auscultation. The first and second heart sounds were normal and physiologic splitting of the second heart sound was noted. There were no murmurs, rubs, clicks, or gallops. Abdominal exam revealed normal bowel sounds. The abdomen was soft, non-tender, and without masses, organomegaly, or appreciable enlargement of the abdominal aorta. Examination of the extremities revealed easily palpable radial, femoral and pedal pulses. There was no cyanosis, clubbing or edema. Examination of the skin revealed no evidence of significant rashes, suspicious appearing nevi or other concerning lesions. Neurologically, the patient is awake and alert and the patient does not have any focal neurological deficit. Cranial nerves are essentially intact. - Labs CBC & Chem 7: 09/09/20 10:35 09/11/20 08:09 Labs: Abnormal Lab Results - Last 24 Hours (Table) 09/10/20 09/10/20 09/11/20 Range/Units 09:48 09:48 08:09 D-Dimer 1.84 H (<0.60) mg/L FEU Chloride 110 H 110 H (98-107) mmol/L Carbon Dioxide 20 L 21 L (22-30) mmol/L BUN 25 H 24 H (7-17) mg/dL Glucose 195 H 110 H (74-99) mg/dL AST 60 H 46 H (14-36) U/L ALT 51 H 47 H (4-34) U/L Lactate Dehydrogenase 802 H 839 H (313-618) U/L C-Reactive Protein 3.7 H 2.0 H (<1.0) mg/dL Total Protein 5.5 L 5.6 L (6.3-8.2) g/dL Albumin 2.8 L 3.0 L (3.5-5.0) g/dL 09/11/20 Range/Units 08:09 D-Dimer 0.85 H (<0.60) mg/L FEU Chloride (98-107) mmol/L Carbon Dioxide (22-30) mmol/L BUN (7-17) mg/dL Glucose (74-99) mg/dL AST (14-36) U/L ALT (4-34) U/L Lactate Dehydrogenase (313-618) U/L C-Reactive Protein (<1.0) mg/dL Total Protein (6.3-8.2) g/dL Albumin (3.5-5.0) g/dL Assessment and Plan Plan: 1 acute bilateral COVID-19 related pneumonia in addition to constitutional symptoms related to COVID-19 infection. Clinically stable on 2 L of oxygen and there may be some interval worsening of the chest x-ray findings based on the radiology report. Based on my review, findings are stable. 2 acute hypoxic respiratory failure currently on oxygen at 2 L to maintain a saturation above 90% 3 elevated inflammatory markers including LDH and CRP secondary to above 4 lymphopenia secondary to above 5 CVA, history of 6 hypertension 7 hyperlipidemia Plan Patient is currently on room air oxygen Switch Decadron to oral May stop the Remdesivir discharge the patient home today, she has taken a total of 3 days of treatment. Vitamin C, D, zinc We'll continue to follow up outpatient
[2020-09-11] MEDS: ACETAMINOPHEN TAB 325 MG TAB PO PRN (10:50)
[2020-09-11 11:59] VITALS: BP 119/55; PULSE 65; TEMP 97.5
--- NOTE | 2020-09-13 18:44 | P.DS ---
Providers Date of admission: 09/09/20 12:30 Expected date of discharge: 09/11/20 Attending physician: Dereje Winter Consults: 09/09/20 13:01 Consult Physician Urgent Consulting Provider: Marcy Gaming Consult Reason/Comments: Covid hypoxia Do you want consulting provider notified?: Yes [facility]: Chief Complaint: Short of breath History of presenting complaint: This is a very pleasant 74-year-old patient of Dr. brooks. Chronic stable medical conditions include GERD, hyperlipidemia, hypertension, residual dysarthria from a stroke in 2016. Patient presents now with about 10 days symptoms of shortness of breath cough body aches some loose stools.. Denies any obvious fever and chills. Tired rundown. Decreased appetite. Patient was diagnosed with COVID 19 on September 05. Patient's pulse ox in the ER was down to 86%. Placed on nasal cannula. Admitted with COVID 19 pneumonia. Treated with dexamethasone Lovenox Remdesivir. Acute hypoxic respiratory failure-given oxygen. Started on 5 L Today: Doing much better. Oral intake good. Pulse ox 94% on room air discussed with the patient. Cleared by pulmonary for discharge. Consultation: Dr. Gaming from pulmonary Past medical history to include: GERD, hyperlipidemia, hypertension, stroke in 2016 with residual dysarthria, anxiety depression Social history: Smoke for 40 years 1 pack a day they'll 2006. Lives with her daughter Sujey. Physical examination: VITAL SIGNS: 97.5, 65, 18, 119/65, 94% room air GENERAL: BMI 32.9, sitting up comfortable HEART: First and second heart sounds are normal; no edema. LUNGS: Respiratory rate improved. PSYCH: Alert and oriented x3; mood and affect normal. INVESTIGATIONS, reviewed in the clinical context: September 11: D-dimer 0.85 potassium 3.9 creatinine 0.58 CRP 2 LDH 839 WBC 6.9 hemoglobin 13.6 platelets 257 d-dimer 1.84 potassium 3.7 creatinine 0.57 CRP 37.9 and repeat 3.7 LDH 131 for repeat 802 UA positive for leukoesterase, WBC EKG tracing personally reviewed by me-normal sinus rhythm with ST segment changes Chest x-ray film personally reviewed by me-infiltrates Assessment and plan: -Bilateral COVID 19 pneumonia. Symptoms have been present for 10 days initially diagnosed on 09/05/2020-improved dexamethasone, Lovenox, started on Remdesivir by pulmonary -Acute hypoxic respiratory failure from COVID 19 pneumonia Nasal cannula on 5 L. Now 94% on room air -Encephalomalacia, chronic -GERD Pepcid -Hyperlipidemia Lipitor -Essential hypertension Prinivil -Chronic dysarthria from an old stroke -Obesity BMI 32.9 Weight loss measures and follow with PCP Disposition: Home Patient Condition at Discharge: Stable Plan - Discharge Summary Discharge Rx Participant: No New Discharge Prescriptions: New Rivaroxaban [Xarelto] 2.5 mg PO DAILY #30 tablet Famotidine [Pepcid] 20 mg PO BID #60 tab dexAMETHasone ORAL [Hexadrol] 6 mg PO DAILY #21 tab Continue Sertraline HCl [Zoloft] 25 mg PO DAILY lisinopriL [Prinivil] 5 mg PO DAILY Cholecalciferol [Vitamin D3 (25 Mcg = 1000 Iu)] 1,000 unit PO DAILY Atorvastatin [Lipitor] 40 mg PO HS Aspirin 81 mg PO DAILY Ascorbic Acid [Vitamin C] 500 mg PO DAILY Acetaminophen Tab [Tylenol] 650 mg PO Q6H PRN #30 tab PRN Reason: Pain Discharge Medication List Cholecalciferol [Vitamin D3 (25 Mcg = 1000 Iu)] 1,000 unit PO DAILY 05/31/18 [History] Sertraline HCl [Zoloft] 25 mg PO DAILY 05/31/18 [History] lisinopriL [Prinivil] 5 mg PO DAILY 05/31/18 [History] Atorvastatin [Lipitor] 40 mg PO HS 07/31/18 [History] Aspirin 81 mg PO DAILY 08/14/18 [History] Ascorbic Acid [Vitamin C] 500 mg PO DAILY 06/20/20 [History] Acetaminophen Tab [Tylenol] 650 mg PO Q6H PRN #30 tab 06/21/20 [Rx] Famotidine [Pepcid] 20 mg PO BID #60 tab 09/11/20 [Rx] Rivaroxaban [Xarelto] 2.5 mg PO DAILY #30 tablet 09/11/20 [Rx] dexAMETHasone ORAL [Hexadrol] 6 mg PO DAILY #21 tab 09/11/20 [Rx] Follow up Appointment(s)/Referral(s): Ruben Brooks MD [Primary Care Provider] - 1-2 days (please call office on Saturday for hospital follow up visit, office is currently closed) Marcy Gaming MD [STAFF PHYSICIAN] - 1 Week (please call office for an appointment on Saturday, office is currently closed) Patient Instructions/Handouts: Famotidine (By mouth), Dexamethasone (By mouth), Rivaroxaban (By mouth), Coronavirus Disease 2019 (COVID-19), Weakness (DC), Hypoxia (ED)
== END 2020-09-11 15:10 | disposition home or self-care (01) | DRG 177 ==
LOC: EC 09:46 → 4SSUR 12:30 → 1SOBS 17:36
PROVIDERS: ADMIT Hospitalist; ATTEND Hospitalist
PROC: XW033E5 Introduction of Remdesivir Anti-infective into Peripheral Vein, Percutaneous Approach, New Technology Group 5 (ICD-10-PCS; principal; 2020-09-09)
DX: U07.1 COVID-19 (principal); J12.82 Pneumonia due to coronavirus disease 2019; J96.01 Acute respiratory failure with hypoxia; K21.9 Gastro-esophageal reflux disease without esophagitis; Z68.32 Body mass index [BMI] 32.0-32.9, adult; D72.810 Lymphocytopenia; E66.9 Obesity, unspecified; E78.5 Hyperlipidemia, unspecified; G93.89 Other specified disorders of brain; I10 Essential (primary) hypertension; I69.322 Dysarthria following cerebral infarction; Z79.82 Long term (current) use of aspirin; Z79.899 Other long term (current) drug therapy; Z87.891 Personal history of nicotine dependence; Z90.710 Acquired absence of both cervix and uterus; Z98.42 Cataract extraction status, left eye; Z98.41 Cataract extraction status, right eye; Z96.1 Presence of intraocular lens; Z80.1 Family history of malignant neoplasm of trachea, bronchus and lung; Z80.0 Family history of malignant neoplasm of digestive organs; Z88.5 Allergy status to narcotic agent
CPT/HCPCS: 36415; 71045; 71046; 80053; 81001; 83605; 83615; 83735; 84484; 85025; 85379; 85610; 85730; 86140; 93005; 96361; 96374; 96375; 99285

== ENCOUNTER → 2020-12-13 | Outpatient (CLI) | payer MEDICARE ==
--- NOTE | 2020-12-13 13:02 | MM ---
Reason for exam: screening (asymptomatic). Last mammogram was performed 4 years and 4 months ago. History: Patient is postmenopausal. Benign stereotactic core biopsy of the right breast, September 16, 2003. Benign stereotactic core biopsy of the right breast, May 16, 2000. Excisional biopsy of the left breast. Took hormonal contraceptives for 10 years. Took estrogen for 6 months. Physical Findings: A clinical breast exam by your physician is recommended on an annual basis and results should be correlated with mammographic findings. MG 3D Screening Mammo W/Cad Bilateral CC and MLO view(s) were taken. Prior study comparison: August 22, 2016, bilateral MG 3d screening mammo w/cad. There are scattered fibroglandular densities. Right biopsy clips. ASSESSMENT: Benign, BI-RAD 2 RECOMMENDATION: Routine screening mammogram of both breasts in 1 year.
== END | disposition home or self-care (01) ==
LOC: RADMAMWWP 10:41
PROVIDERS: ATTEND Family Medicine
DX: Z12.31 Encounter for screening mammogram for malignant neoplasm of breast (principal); Z78.0 Asymptomatic menopausal state; Z79.3 Long term (current) use of hormonal contraceptives
CPT/HCPCS: 77063; 77067

== ENCOUNTER → 2021-02-06 | Outpatient (CLI) | payer MEDICARE ==
[2021-02-06 18:10] LABS: African American GFR (CKD) 63.8 (60.0-200.0); Albumin 5.1 g/dL (3.80-4.90); Albumin/Globulin Ratio 2.13 (1.60-3.17); Anion Gap 11.4 mmol/L (4.00-12.00); Calcium 10.4 mg/dL (8.7-10.3); Carbon Dioxide 25.6 mmol/L (21.6-31.8); Globulin 2.4 g/dL (1.6-3.3); Non-African American GFR(CKD) 55.1 (60.0-200.0); Potassium 4.8 mmol/L (3.5-5.5); Total Bilirubin 0.6 mg/dL (0.3-1.2); Total Protein 7.5 g/dL (6.2-8.2)
== END | disposition home or self-care (01) ==
LOC: LABWHC1 09:40
PROVIDERS: ATTEND Family Medicine
DX: I10 Essential (primary) hypertension (principal)
CPT/HCPCS: 36415; 80053

== ENCOUNTER → 2021-02-13 | Outpatient (CLI) | payer MEDICARE ==
[2021-02-13 17:24] LABS: African American GFR (CKD) 72.5 (60.0-200.0); Albumin/Globulin Ratio 2.17 (1.60-3.17); Anion Gap 10.2 mmol/L (4.00-12.00); BUN/Creat Ratio 21.11 Ratio (12.00-20.00); Calcium 10.2 mg/dL (8.7-10.3); Carbon Dioxide 25.8 mmol/L (21.6-31.8); Globulin 2.3 g/dL (1.6-3.3); Non-African American GFR(CKD) 62.5 (60.0-200.0); Potassium 4.7 mmol/L (3.5-5.5); Total Bilirubin 0.5 mg/dL (0.3-1.2); Total Protein 7.3 g/dL (6.2-8.2)
== END | disposition home or self-care (01) ==
LOC: LABWHC1 08:49
PROVIDERS: ATTEND Family Medicine
DX: R94.4 Abnormal results of kidney function studies (principal)
CPT/HCPCS: 36415; 80053

== ENCOUNTER → 2021-04-24 | Outpatient (CLI) | payer MEDICARE, OTHER | END | disposition home or self-care (01) | LOC: LABWHC1 08:42 | PROVIDERS: ATTEND Emergency Medicine | DX: Z20.822 Contact with and (suspected) exposure to COVID-19 (principal) | CPT/HCPCS: 87635 ==

== ENCOUNTER → 2021-05-01 | Outpatient (CLI) | payer MEDICARE ==
[2021-05-01 14:30] LABS: Basophils # (A) 0.05 X 10*3/uL (0.00-0.10); Basophils % (A) 0.8 %; Eosinophils # (A) 0.27 X 10*3/uL (0.04-0.35); Eosinophils % (A) 4.5 %; HGB 12.6 g/dL (12.0-15.0); Lymphocytes # (A) 2.06 X 10*3/uL (0.90-5.00); MCHC 32.3 g/dL (32.0-37.0); MCV 92.9 fL (80.0-97.0); Mean Platelet Volume 10.8 fL (9.5-12.2); Monocytes # (A) 0.44 X 10*3/uL (0.20-1.00); Monocytes % (A) 7.3 %; Neutrophils # (A) 3.21 X 10*3/uL (1.80-7.70); Neutrophils % (A) 53.1 %; Platelet Count 212 X 10*3/uL (140-440); WBC 6.05 X 10*3/uL (4.50-10.00)
[2021-05-01 15:23] LABS: ALT 22 U/L (8-44); AST 24 U/L (13-35); African American GFR (CKD) 76.6 (60.0-200.0); Albumin 4.3 g/dL (3.8-4.9); Albumin/Globulin Ratio 1.84 (1.60-3.17); Alkaline Phosphatase 121 U/L (41-126); BUN/Creat Ratio 16.16 Ratio (12.00-20.00); Blood Urea Nitrogen 13.9 mg/dL (9.0-27.0); Calcium 9.4 mg/dL (8.7-10.3); Carbon Dioxide 22.4 mmol/L (20.0-27.5); Chloride 107 mmol/L (96-109); Chol/HDL Ratio 3.75 Ratio; Globulin 2.3 g/dL (1.6-3.3); Glucose 109 mg/dL (70-110); LDL Cholesterol,Calculated 67.1 mg/dL (0.0-131.0); Non-African American GFR(CKD) 66.1 (60.0-200.0); Potassium 4.3 mmol/L (3.5-5.5); Sodium 142 mmol/L (135-145); Total Protein 6.7 g/dL (6.2-8.2)
== END | disposition home or self-care (01) ==
LOC: LABWHC1 07:58
PROVIDERS: ATTEND Family Medicine
DX: Z00.01 Encounter for general adult medical examination with abnormal findings (principal); E55.9 Vitamin D deficiency, unspecified
CPT/HCPCS: 36415; 80053; 80061; 82306; 85025

== ENCOUNTER → 2021-10-02 | Outpatient (CLI) | payer MEDICARE ==
[2021-10-02 14:44] LABS: Basophils # (A) 0.06 X 10*3/uL (0.00-0.10); Basophils % (A) 0.8 %; Eosinophils # (A) 0.25 X 10*3/uL (0.04-0.35); Eosinophils % (A) 3.2 %; HCT 41.5 % (37.2-46.3); HGB 12.9 g/dL (12.0-15.0); Immature Grans, Automated 0.3 %; Lymphocytes # (A) 2.11 X 10*3/uL (0.90-5.00); Lymphocytes % (A) 27.3 %; MCH 29.3 pg (27.0-32.0); MCHC 31.1 g/dL (32.0-37.0); MCV 94.3 fL (80.0-97.0); Mean Platelet Volume 10.9 fL (9.5-12.2); Monocytes # (A) 0.56 X 10*3/uL (0.20-1.00); Monocytes % (A) 7.2 %; NRBC Per 100 WBC 0 /100 WBCS (0.0-0.0); Neutrophils # (A) 4.73 X 10*3/uL (1.80-7.70); Neutrophils % (A) 61.2 %; Platelet Count 228 X 10*3/uL (140-440); RDW 13.2 % (11.5-14.5); WBC 7.73 X 10*3/uL (4.50-10.00)
[2021-10-02 18:14] LABS: African American GFR (CKD) 72.5 (60.0-200.0); Albumin 4.6 g/dL (3.8-4.9); Albumin/Globulin Ratio 1.59 (1.60-3.17); BUN/Creat Ratio 18.33 Ratio (12.00-20.00); Blood Urea Nitrogen 16.5 mg/dL (9.0-27.0); Calcium 10.1 mg/dL (8.7-10.3); Globulin 2.9 g/dL (1.6-3.3); Non-African American GFR(CKD) 62.5 (60.0-200.0); Potassium 4.6 mmol/L (3.5-5.5); Total Bilirubin 0.5 mg/dL (0.30-1.20); Total Protein 7.5 g/dL (6.2-8.2)
== END | disposition home or self-care (01) ==
LOC: LABWHC1 08:29
PROVIDERS: ATTEND Family Medicine
DX: I10 Essential (primary) hypertension (principal)
CPT/HCPCS: 36415; 80053; 85025

== ENCOUNTER → 2021-11-20 | Outpatient (CLI) | payer MEDICARE ==
--- NOTE | 2021-11-20 09:04 | XR ---
EXAMINATION TYPE: XR chest 2V DATE OF EXAM: 11/20/2021 COMPARISON: 09/10/2020 TECHNIQUE: PA and lateral views submitted. HISTORY: Cough FINDINGS: Chronic nonunion fracture right humeral head. Heart size normal. No overt failure pleural effusion. N o pneumothorax. No consolidative pneumonia. Coarsened interstitium suggests chronic interstitial lung disease. Hyperinflation suggests COPD. Surgical clips are noted in the upper abdomen. Hypertrophic d egenerative changes of the spine IMPRESSION: 1. Correlate for COPD. 2. Correlate for chronic interstitial lung disease.
== END | disposition home or self-care (01) ==
LOC: RADXRMAIN 08:29
PROVIDERS: ATTEND Family Medicine
DX: J84.10 Pulmonary fibrosis, unspecified (principal)
CPT/HCPCS: 71046

== ENCOUNTER → 2022-04-03 | Outpatient (CLI) | payer MEDICARE ==
[2022-04-03 14:33] LABS: Albumin 4.3 g/dL (3.8-4.9); Albumin/Globulin Ratio 1.43 (1.60-3.17); BUN/Creat Ratio 20.5 Ratio (12.00-20.00); Blood Urea Nitrogen 16.4 mg/dL (9.0-27.0); Calcium 9.5 mg/dL (8.7-10.3); Non-African American GFR(CKD) 71.6 (60.0-200.0); Potassium 4.2 mmol/L (3.5-5.5); Total Bilirubin 0.4 mg/dL (0.30-1.20); Total Protein 7.3 g/dL (6.2-8.2)
[2022-04-03 15:21] LABS: Basophils # (A) 0.05 X 10*3/uL (0.00-0.10); Basophils % (A) 0.8 %; Eosinophils # (A) 0.26 X 10*3/uL (0.04-0.35); HCT 39.9 % (37.2-46.3); HGB 12.9 g/dL (12.0-15.0); Immature Grans, Automated 0.3 %; Lymphocytes # (A) 1.96 X 10*3/uL (0.90-5.00); Lymphocytes % (A) 30.5 %; MCH 29.7 pg (27.0-32.0); MCHC 32.3 g/dL (32.0-37.0); MCV 91.7 fL (80.0-97.0); Mean Platelet Volume 11.9 fL (9.5-12.2); Monocytes # (A) 0.45 X 10*3/uL (0.20-1.00); NRBC Per 100 WBC 0 /100 WBCS (0.0-0.0); Neutrophils # (A) 3.68 X 10*3/uL (1.80-7.70); Neutrophils % (A) 57.4 %; Platelet Count 231 X 10*3/uL (140-440); RBC 4.35 X 10*6/uL (4.10-5.20); RDW 12.8 % (11.5-14.5); WBC 6.42 X 10*3/uL (4.50-10.00)
== END | disposition home or self-care (01) ==
LOC: LABWHC1 08:26
PROVIDERS: ATTEND Family Medicine
DX: Z00.01 Encounter for general adult medical examination with abnormal findings (principal)
CPT/HCPCS: 36415; 80053; 85025

== ENCOUNTER → 2022-11-05 | Outpatient (CLI) | payer MEDICARE ==
[2022-11-05 15:02] LABS: Basophils # (A) 0.05 X 10*3/uL (0.00-0.10); Basophils % (A) 0.9 %; Eosinophils # (A) 0.25 X 10*3/uL (0.04-0.35); Eosinophils % (A) 4.7 %; HCT 43.7 % (37.2-46.3); HGB 13.2 d/dL (12.0-15.0); Lymphocytes # (A) 2.01 X 10*3/uL (0.90-5.00); Lymphocytes % (A) 37.6 %; MCH 29.2 pg (27.0-32.0); MCHC 30.2 d/dL (32.0-37.0); MCV 96.7 FL (80.0-97.0); Mean Platelet Volume 11.1 FL (9.5-12.2); Monocytes # (A) 0.37 X 10*3/uL (0.20-1.00); Monocytes % (A) 6.9 %; NRBC Per 100 WBC 0 X 10*3/uL (0.00-0.01); Neutrophils # (A) 2.66 X 10*3/uL (1.80-7.70); Neutrophils % (A) 49.7 %; Platelet Count 241 X 10*3/uL (140-440); RBC 4.52 X 10*6/uL (4.10-5.20); RDW 12.9 % (11.5-14.5); WBC 5.35 X 10*3/uL (4.50-10.00)
[2022-11-05 16:07] LABS: ALT 22 U/L (8-44); AST 21 U/L (13-35); Albumin 4.4 d/dL (3.8-4.9); Albumin/Globulin Ratio 1.76 Ratio (1.60-3.17); Alkaline Phosphatase 143 U/L (41-126); Blood Urea Nitrogen 15.2 mg/dL (9.0-27.0); Calcium 9.6 mg/dL (8.7-10.3); Carbon Dioxide 22.7 mmol/L (21.6-31.8); Chloride 108 mmol/L (96-109); Globulin 2.5 d/dL (1.6-3.3); Glucose 102 mg/dL (70-110); LDL Cholesterol,Calculated 70.4 mg/dL (0.0-131.0); Potassium 4.4 mmol/L (3.5-5.5); Sodium 145 mmol/L (135-145); Total Bilirubin 0.5 mg/dL (0.3-1.2); Total Protein 6.9 d/dL (6.2-8.2)
== END | disposition home or self-care (01) ==
LOC: LABWHC1 07:47
PROVIDERS: ATTEND Family Medicine
DX: E78.5 Hyperlipidemia, unspecified (principal); E55.9 Vitamin D deficiency, unspecified; Z86.73 Personal history of transient ischemic attack (TIA), and cerebral infarction without residual deficits
CPT/HCPCS: 36415; 80053; 80061; 82306; 85025

== ENCOUNTER → 2022-11-21 | Outpatient (CLI) | payer MEDICARE ==
--- NOTE | 2022-11-22 07:42 | MR ---
EXAMINATION TYPE: MR knee LT wo con DATE OF EXAM: 11/21/2022 COMPARISON: Prior MRI left knee January 29, 2015 HISTORY: Left knee pain and swelling. Unilateral primary osteoarthritis and internal derangement rule out torn meniscus per order. TECHNIQUE: Multiplanar, multisequence images of the knee is performed without IV contrast. FINDINGS: MEDIAL MENISCUS: Oblique and triangular-shaped increased signal posterior horn is more prominent rede monstrated extending to inferior articular surface on current study. LATERAL MENISCUS: Anterior and posterior horns are intact without tear. CRUCIATE LIGAMENTS: The anterior and posterior cruciate ligaments are intact and unremarkable. COLLATERAL LIGAMENTS: The medial collateral ligament and lateral collateral ligament complex are inta ct and unremarkable. EXTENSOR MECHANISM: Visualized quadriceps and patellar tendons are intact. Increased signal proximal patellar pole remains present. EFFUSION: No significant suprapatellar joint effusion. There is however new fluid deep within Hoffa' s fat pad anterior to the ACL. Correlate for recent pain injection. POPLITEAL CYST: No popliteal/nicole cyst. TRICOMPARTMENT SPACES: Mild to moderate tricompartment joint space loss with mild to minimal spurring is redemonstrated. CARTILAGE: Some chondromalacia patella with cartilaginous loss along the posterior patellar pole. BONE MARROW SIGNAL: Persistent susceptibility artifact anterior distal lateral femoral condyle. New h eterogeneous increased T2 signal involving the central tibial plateau with slight posterior aspect. OTHER: No additional significant abnormality is appreciated. IMPRESSION: 1. Slightly more prominent full-thickness tear posterior horn of medial meniscus. 2. Mild to moderate tricompartment degenerative changes redemonstrated greatest patellofemoral compar tment as detailed above. No significant change from prior. 3. Abnormal fluid signal now present in deep Hoffa's fat pad anterior to ACL extending into intercond ylar notch, correlate for recent pain relief/steroid injection.
== END | disposition home or self-care (01) ==
LOC: RADMRIMAIN 12:05
PROVIDERS: ATTEND Orthopaedic Surgery
DX: M17.0 Bilateral primary osteoarthritis of knee (principal); S83.242A Other tear of medial meniscus, current injury, left knee, initial encounter; M23.8X2 Other internal derangements of left knee; X58.XXXA Exposure to other specified factors, initial encounter

== ENCOUNTER → 2023-06-03 | Outpatient (CLI) | payer MEDICARE ==
[2023-06-03 15:03] LABS: Basophils # (A) 0.04 X 10*3/uL (0.00-0.10); Basophils % (A) 0.6 %; Eosinophils % (A) 2.8 %; HCT 38.8 % (37.2-46.3); Lymphocytes % (A) 29.9 %; MCH 29.5 pg (27.0-32.0); MCHC 33.5 g/dL (32.0-37.0); MCV 88.2 FL (80.0-97.0); Mean Platelet Volume 11.1 FL (9.5-12.2); Monocytes # (A) 0.44 X 10*3/uL (0.20-1.00); Monocytes % (A) 6.3 %; NRBC Per 100 WBC 0 X 10*3/uL (0.00-0.01); Neutrophils # (A) 4.23 X 10*3/uL (1.80-7.70); Neutrophils % (A) 60.3 %; Platelet Count 229 X 10*3/uL (140-440); RDW 12.2 % (11.5-14.5); WBC 7.02 X 10*3/uL (4.50-10.00)
[2023-06-03 15:36] LABS: ALT 18 U/L (8-44); AST 20 U/L (13-35); Albumin 4.1 g/dL (3.8-4.9); Albumin/Globulin Ratio 1.58 Ratio (1.60-3.17); Alkaline Phosphatase 119 U/L (41-126); BUN/Creat Ratio 9.78 Ratio (12.00-20.00); Blood Urea Nitrogen 8.8 mg/dL (9.0-27.0); Calcium 9.5 mg/dL (8.7-10.3); Carbon Dioxide 24.1 mmol/L (21.6-31.8); Chloride 107 mmol/L (96-109); Globulin 2.6 g/dL (1.6-3.3); Glucose 95 mg/dL (70-110); Potassium 4.1 mmol/L (3.5-5.5); Sodium 145 mmol/L (135-145); Total Bilirubin 0.4 mg/dL (0.3-1.2); Total Protein 6.7 g/dL (6.2-8.2)
== END | disposition home or self-care (01) ==
LOC: LABWHC1 09:30
PROVIDERS: ATTEND Family Medicine
DX: Z00.01 Encounter for general adult medical examination with abnormal findings (principal)
CPT/HCPCS: 36415; 80053; 82306; 85025

== ENCOUNTER → 2023-11-18 | Outpatient (CLI) | payer MEDICARE ==
[2023-11-18 14:49] LABS: Basophils # (A) 0.05 X 10*3/uL (0.00-0.10); Basophils % (A) 0.8 %; Eosinophils # (A) 0.22 X 10*3/uL (0.04-0.35); Eosinophils % (A) 3.4 %; HCT 42.8 % (37.2-46.3); HGB 13.9 g/dL (12.0-15.0); Lymphocytes # (A) 2.29 X 10*3/uL (0.90-5.00); Lymphocytes % (A) 35.2 %; MCH 29.4 pg (27.0-32.0); MCHC 32.5 g/dL (32.0-37.0); MCV 90.5 FL (80.0-97.0); Monocytes # (A) 0.48 X 10*3/uL (0.20-1.00); Monocytes % (A) 7.4 %; NRBC Per 100 WBC 0 X 10*3/uL (0.00-0.01); Neutrophils # (A) 3.46 X 10*3/uL (1.80-7.70); Platelet Count 229 X 10*3/uL (140-440); RBC 4.73 X 10*6/uL (4.10-5.20); RDW 12.8 % (11.5-14.5); WBC 6.51 X 10*3/uL (4.50-10.00)
[2023-11-18 15:48] LABS: ALT 24 U/L (8-44); AST 24 U/L (13-35); Albumin 4.8 g/dL (3.8-4.9); Albumin/Globulin Ratio 1.92 Ratio (1.60-3.17); Alkaline Phosphatase 131 U/L (41-126); BUN/Creat Ratio 18.44 Ratio (12.00-20.00); Blood Urea Nitrogen 16.6 mg/dL (9.0-27.0); Calcium 9.8 mg/dL (8.7-10.3); Chloride 104 mmol/L (96-109); Chol/HDL Ratio 3.68 Ratio; Globulin 2.5 g/dL (1.6-3.3); Glucose 119 mg/dL (70-110); LDL Cholesterol,Calculated 68.7 mg/dL (0.0-131.0); Potassium 4.6 mmol/L (3.5-5.5); Sodium 142 mmol/L (135-145); Total Bilirubin 0.6 mg/dL (0.3-1.2); Total Protein 7.3 g/dL (6.2-8.2)
== END | disposition home or self-care (01) ==
LOC: LABWHC1 08:35
PROVIDERS: ATTEND Family Medicine
DX: I10 Essential (primary) hypertension (principal); E78.5 Hyperlipidemia, unspecified; E66.9 Obesity, unspecified; E55.9 Vitamin D deficiency, unspecified
CPT/HCPCS: 36415; 80053; 80061; 82306; 84443; 85025

== ENCOUNTER → 2024-03-23 | Outpatient (CLI) | payer MEDICARE ==
[2024-03-23 10:21] LABS: Basophils # (A) 0.07 X 10*3/uL (0.00-0.10); Eosinophils # (A) 0.21 X 10*3/uL (0.04-0.35); Eosinophils % (A) 3.1 %; HCT 39.9 % (37.2-46.3); Lymphocytes # (A) 2.56 X 10*3/uL (0.90-5.00); Lymphocytes % (A) 37.4 %; MCH 29.3 pg (27.0-32.0); MCHC 32.6 g/dL (32.0-37.0); MCV 90.1 FL (80.0-97.0); Mean Platelet Volume 11.6 FL (9.5-12.2); Monocytes # (A) 0.48 X 10*3/uL (0.20-1.00); NRBC Per 100 WBC 0 X 10*3/uL (0.00-0.01); Neutrophils # (A) 3.52 X 10*3/uL (1.80-7.70); Neutrophils % (A) 51.4 %; Platelet Count 220 X 10*3/uL (140-440); RBC 4.43 X 10*6/uL (4.10-5.20); RDW 12.8 % (11.5-14.5); WBC 6.85 X 10*3/uL (4.50-10.00)
[2024-03-23 10:30] LABS: ALT 25 U/L (8-44); AST 25 U/L (13-35); Albumin 4.2 g/dL (3.8-4.9); Albumin/Globulin Ratio 1.62 Ratio (1.60-3.17); Alkaline Phosphatase 127 U/L (41-126); Blood Urea Nitrogen 15.3 mg/dL (9.0-27.0); Calcium 9.3 mg/dL (8.7-10.3); Carbon Dioxide 23.2 mmol/L (21.6-31.8); Chloride 105 mmol/L (96-109); Globulin 2.6 g/dL (1.6-3.3); Glucose 174 mg/dL (70-110); Sodium 142 mmol/L (135-145); Total Bilirubin 0.5 mg/dL (0.3-1.2); Total Protein 6.8 g/dL (6.2-8.2)
== END | disposition home or self-care (01) ==
LOC: LABWHC1 07:23
PROVIDERS: ATTEND Family Medicine
DX: I10 Essential (primary) hypertension (principal)
CPT/HCPCS: 36415; 80053; 85025

== ENCOUNTER → 2024-05-07 | Outpatient (CLI) | payer MEDICARE ==
[2024-05-07 15:20] LABS: Blood Urea Nitrogen 18.3 mg/dL (9.0-27.0)
[2024-05-07 15:21] LABS: Carbon Dioxide 25.3 mmol/L (21.6-31.8); Chloride 105 mmol/L (96-109); Potassium 4.4 mmol/L (3.5-5.5); Sodium 142 mmol/L (135-145)
[2024-05-07 17:07] LABS: HCT 42.8 % (37.2-46.3); HGB 13.7 g/dL (12.0-15.0); MCH 29.6 pg (27.0-32.0); MCV 92.4 FL (80.0-97.0); Mean Platelet Volume 12.1 FL (9.5-12.2); NRBC Per 100 WBC 0 X 10*3/uL (0.00-0.01); Platelet Count 229 X 10*3/uL (140-440); RBC 4.63 X 10*6/uL (4.10-5.20); WBC 6.89 X 10*3/uL (4.50-10.00)
== END | disposition home or self-care (01) ==
LOC: LABPAT 11:42
PROVIDERS: ATTEND Internal Medicine Interventional Cardiology
DX: Z01.818 Encounter for other preprocedural examination (principal); I34.0 Nonrheumatic mitral (valve) insufficiency
CPT/HCPCS: 36415; 80051; 82565; 84520; 85027

== ENCOUNTER 2024-10-26 22:38 | Emergency (ER) | payer MEDICARE ==
[2024-10-26 22:50] VITALS: RESP 18
[2024-10-26] MEDS: FLUORESCEIN STRIPS 1 MG STRIP LEFT EYE ONE (23:31)
[2024-10-26] MEDS: PROPARACAINE 0.5% OPHTH DROPS 15 ML BTL LEFT EYE STA (23:31)
[2024-10-26] MEDS: valACYclovir HCL 1,000 MG TABLET PO STA (23:31)
--- NOTE | 2024-10-26 23:40 | ED ---
General Adult HPI - General Chief complaint: Headache Stated complaint: left eye swollen Time Seen by Provider: 10/26/24 23:07 Source: patient Mode of arrival: ambulatory Limitations: no limitations - History of Present Illness Initial comments: Patient is 79-year-old woman presenting to have evaluation for left-sided headache that has been coming on over the course of the day. The patient denies noting fever or chills. No neurologic symptoms. No change in vision. There is no neck stiffness . Onset/Timin -: days(s) Location: head Radiation: non-radiation Quality: aching Consistency: constant Improves with: none Worsens with: none Associated Symptoms: denies other symptoms Treatments Prior to Arrival: none - Related Data Home Medications Medication Instructions Recorded Confirmed Cholecalciferol [Vitamin D3 (25 1,000 unit PO DAILY 05/31/18 09/09/20 Mcg = 1000 Iu)] Sertraline HCl [Zoloft] 25 mg PO DAILY 05/31/18 09/09/20 lisinopriL [Prinivil] 5 mg PO DAILY 05/31/18 09/09/20 Atorvastatin [Lipitor] 40 mg PO HS 07/31/18 09/09/20 Aspirin 81 mg PO DAILY 08/14/18 09/09/20 Ascorbic Acid [Vitamin C] 500 mg PO DAILY 06/20/20 09/09/20 Previous Rx's Medication Instructions Recorded Acetaminophen Tab [Tylenol] 650 mg PO Q6H PRN #30 tab 06/21/20 Famotidine [Pepcid] 20 mg PO BID #60 tab 09/11/20 Rivaroxaban [Xarelto] 2.5 mg PO DAILY #30 tablet 09/11/20 dexAMETHasone ORAL [Hexadrol] 6 mg PO DAILY #21 tab 09/11/20 valACYclovir HCL [Valacyclovir] 1,000 mg PO TID #21 tab 10/26/24 Allergies Allergy/AdvReac Type Severity Reaction Status Date / Time codeine AdvReac HEADACHE Verified 10/26/24 22:46 Review of Systems ROS Statement: Those systems with pertinent positive or pertinent negative responses have been documented in the HPI. ROS Other: All systems not noted in ROS Statement are negative. Constitutional: Denies: fever, chills Eyes: Denies: eye pain, eye discharge, vision change ENT: Denies: congestion Respiratory: Denies: cough, dyspnea Cardiovascular: Denies: chest pain, palpitations, syncope Gastrointestinal: Denies: abdominal pain, nausea, vomiting Genitourinary: Denies: dysuria Musculoskeletal: Denies: back pain Skin: Denies: rash Neurological: Reports: headache. 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, dizziness from 2016 History of Any Multi-Drug Resistant Organisms: None Reported Past Surgical History: Cholecystectomy, Hysterectomy, Tonsillectomy Additional Past Surgical History / Comment(s): CYST REMOVED LEFT HAND, DENNY.CATARACTS WITH LENS IMPLANTS., COLONOSCOPY Past Anesthesia/Blood Transfusion Reactions: No Reported Reaction Past Psychological History: No Psychological Hx Reported, Depression Smoking Status: Former smoker Past Alcohol Use History: None Reported Past Drug Use History: None Reported - Past Family History Father Family Medical History: Cancer Additional Family Medical History / Comment(s): LUNG Mother Family Medical History: Cancer Additional Family Medical History / Comment(s): COLON General Exam Limitations: no limitations General appearance: alert, in no apparent distress Head exam: Present: atraumatic, normocephalic Eye exam: Present: PERRL, EOMI, periorbital swelling. Absent: scleral icterus, conjunctival injection ENT exam: Present: normal oropharynx, mucous membranes moist, TM's normal bilaterally Neck exam: Present: normal inspection, full ROM. Absent: tenderness, meningismus, lymphadenopathy Respiratory exam: Present: normal lung sounds bilaterally. Absent: respiratory distress, wheezes, rales, rhonchi, stridor Cardiovascular Exam: Present: regular rate, normal rhythm, normal heart sounds. Absent: systolic murmur, diastolic murmur, rubs, gallop GI/Abdominal exam: Present: soft. Absent: distended, tenderness, guarding, rebound Extremities exam: Present: normal inspection, normal capillary refill. Absent: pedal edema, calf tenderness Back exam: Present: normal inspection Skin exam: Present: warm, dry, intact, normal color, vesicles (Left scalp) Course Vital Signs 10/26/24 10/26/24 22:46 23:40 Temperature 97.5 F L 98.2 F Pulse Rate 68 78 Respiratory 18 18 Rate Blood Pressure 185/88 156/78 O2 Sat by Pulse 98 100 Oximetry Medical Decision Making - Medical Decision Making Was pt. sent in by a medical professional or institution (, BENY, PROJECT DEVELOPMENT MANAGER, urgent care, hospital, or assisted...) When possible be specific @ -[No] Did you speak to anyone other than the patient for history (EMS, parent, family, police, friend...)? What history was obtained from this source @ -[No] Did you review nursing and triage notes (agree or disagree)? Why? @ -[I reviewed and agree with nursing and triage notes] Were old charts reviewed (outside hosp., previous admission, EMS record, old EKG, old radiological studies, urgent care reports/EKG's, assisted records)? Report findings @ -[No old charts were reviewed] Differential Diagnosis (chest pain, altered mental status, abdominal pain women, abdominal pain men, vaginal bleeding, weakness, fever, dyspnea, syncope, headache, dizziness, GI bleed, back pain, seizure, CVA, palpatations, mental health, musculoskeletal)? @ -[Differential Headache: Migraine, tension, cluster, carbon monoxide, central venous thrombosis, pension karma temporal arteritis, acute closure glaucoma, intercranial hemorrhage, mastoiditis, sinusitis, head injury, this is not meant to be an all-inclusive list. EKG interpreted by me (3pts min.). @ -[As above] X-rays interpreted by me (1pt min.). @ -[None done] CT interpreted by me (1pt min.). @ -[None done] U/S interpreted by me (1pt. min.). @ -[None done] What testing was considered but not performed or refused? (CT, X-rays, U/S, labs)? Why? @ -[None] What meds were considered but not given or refused? Why? @ -[None] Did you discuss the management of the patient with other professionals (professionals i.e. BENY Leslie, PROJECT DEVELOPMENT MANAGER, lab, RT, psych nurse, social services assistant, ship scraper, teacher, certified juvenile probation officer, patient case coordinator)? Give summary @ -[No] Was smoking cessation discussed for >3mins.? @ -[No] Was critical care preformed (if so, how long)? @ -[No] Were there social determinants of health that impacted care today? How? (Homelessness, low income, unemployed, alcoholism, drug addiction, transportation, low edu. Level, literacy, decrease access to med. care, senior living, rehab)? @ -[No] Was there de-escalation of care discussed even if they declined (Discuss DNR or withdrawal of care, Hospice)? DNR status @ -[No] What co-morbidities impacted this encounter? (DM, HTN, Smoking, COPD, CAD, Cancer, CVA, ARF, Chemo, Hep., AIDS, mental health diagnosis, sleep apnea, morbid obesity)? @ -[None] Was patient admitted / discharged? Hospital course, mention meds given and route, prescriptions, significant lab abnormalities, going to OR and other pertinent info. @ -[Patient 79-year-old woman presenting with head pain to the left side of the head as well as having some mild edema periorbitally. The patient history and physical strongly suggestive of zoster though no definite vesicular lesions. As a precaution the patient had fluorescein stain and eye exam with no evidence of dendrite or corneal abrasion. The patient started on antiviral medication, discussed appropriate further care and follow-up as well as return parameters Undiagnosed new problem with uncertain prognosis? @ -[No] Drug Therapy requiring intensive monitoring for toxicity (Heparin, Nitro, Insulin, Cardizem)? @ -[No] Were any procedures done? @ -[No] Diagnosis/symptom? @ -[Acute headache Herpes zoster Acute, or ChroChronic? @ -[Acute Uncomplicated (without systemic symptoms) or Complicated (systemic symptoms)? @ -[Uncomplicated Side effects of treatment? @ -[No] Exacerbation, Progression, or Severe Exacerbation? @ -[No] Poses a threat to life or bodily function? How? (Chest pain, [place], [place], pneumonia, PE, COPD, DKA, ARF, appy, cholecystitis, CVA, Diverticulitis, Homicidal, Suicidal, threat to staff... and all critical care pts) @ -[No] All treatments are based on ideal body weight as in ED triage Disposition Clinical Impression: Zoster Disposition: HOME SELF-CARE Condition: Good Instructions (If sedation given, give patient instructions): Shingles (ED) Prescriptions: valACYclovir HCL [Valacyclovir] 1,000 mg PO TID #21 tab Is patient prescribed a controlled substance at d/c from ED?: No Referrals: Ruben Brooks MD [Primary Care Provider] - 1-2 days
[2024-10-26 23:56] VITALS: BP 156/78; PULSE 78; TEMP 98.2
== END 2024-10-26 23:45 | disposition home or self-care (01) ==
LOC: EC 22:38
DX: B02.9 Zoster without complications (principal); Z87.891 Personal history of nicotine dependence; Z88.5 Allergy status to narcotic agent
CPT/HCPCS: 99283

== ENCOUNTER → 2024-11-04 | Outpatient (CLI) | payer MEDICARE ==
[2024-11-04 15:52] LABS: Basophils # (A) 0.06 X 10*3/uL (0.00-0.10); Basophils % (A) 0.9 %; Eosinophils # (A) 0.15 X 10*3/uL (0.04-0.35); Eosinophils % (A) 2.3 %; HCT 42.1 % (37.2-46.3); HGB 13.7 g/dL (12.0-15.0); Lymphocytes # (A) 2.36 X 10*3/uL (0.90-5.00); Lymphocytes % (A) 36.8 %; MCH 29.8 pg (27.0-32.0); MCHC 32.5 g/dL (32.0-37.0); MCV 91.5 FL (80.0-97.0); Mean Platelet Volume 11.5 FL (9.5-12.2); Monocytes # (A) 0.44 X 10*3/uL (0.20-1.00); Monocytes % (A) 6.9 %; NRBC Per 100 WBC 0 X 10*3/uL (0.00-0.01); Neutrophils % (A) 52.9 %; Platelet Count 234 X 10*3/uL (140-440); RDW 12.9 % (11.5-14.5); WBC 6.42 X 10*3/uL (4.50-10.00)
[2024-11-04 16:44] LABS: ALT 29 U/L (8-44); AST 31 U/L (13-35); Albumin 4.4 g/dL (3.8-4.9); Albumin/Globulin Ratio 1.69 Ratio (1.60-3.17); Alkaline Phosphatase 137 U/L (41-126); BUN/Creat Ratio 15.12 Ratio (12.00-20.00); Blood Urea Nitrogen 12.1 mg/dL (9.0-27.0); Calcium 9.8 mg/dL (8.7-10.3); Carbon Dioxide 23.4 mmol/L (21.6-31.8); Chloride 108 mmol/L (96-109); Chol/HDL Ratio 3.23 Ratio; Globulin 2.6 g/dL (1.6-3.3); Glucose 101 mg/dL (70-110); LDL Cholesterol,Calculated 69.8 mg/dL (0.0-131.0); Potassium 4.6 mmol/L (3.5-5.5); Sodium 147 mmol/L (135-145); Total Bilirubin 0.5 mg/dL (0.3-1.2)
== END | disposition home or self-care (01) ==
LOC: LABWHC1 11:36
PROVIDERS: ATTEND Family Medicine
DX: Z00.01 Encounter for general adult medical examination with abnormal findings (principal)
CPT/HCPCS: 36415; 80053; 80061; 82306; 85025

== ENCOUNTER → 2024-11-12 | Outpatient (CLI) | payer MEDICARE ==
[2024-11-12 19:43] LABS: ALT 29 U/L (8-44); AST 32 U/L (13-35); Albumin 4.3 g/dL (3.8-4.9); Albumin/Globulin Ratio 1.72 Ratio (1.60-3.17); Alkaline Phosphatase 134 U/L (41-126); BUN/Creat Ratio 24.86 Ratio (12.00-20.00); Blood Urea Nitrogen 17.4 mg/dL (9.0-27.0); Calcium 9.6 mg/dL (8.7-10.3); Carbon Dioxide 22.3 mmol/L (21.6-31.8); Chloride 107 mmol/L (96-109); Globulin 2.5 g/dL (1.6-3.3); Glucose 108 mg/dL (70-110); Potassium 4.6 mmol/L (3.5-5.5); Sodium 142 mmol/L (135-145); Total Bilirubin 0.4 mg/dL (0.3-1.2); Total Protein 6.8 g/dL (6.2-8.2)
== END | disposition home or self-care (01) ==
LOC: LABWHC1 12:31
PROVIDERS: ATTEND Family Medicine
DX: E87.1 Hypo-osmolality and hyponatremia (principal)
CPT/HCPCS: 36415; 80053